=== PATIENT | female | born 1940 | race Caucasian/White ===

== ENCOUNTER 2016-06-21 11:12 | Emergency (ER) | payer MEDICARE, OTHER | END 2016-06-21 13:34 | disposition home or self-care (01) | DX: G44.219 Episodic tension-type headache, not intractable (principal); V48.5XXA Car driver injured in noncollision transport accident in traffic accident, initial encounter; Y92.410 Unspecified street and highway as the place of occurrence of the external cause; I10 Essential (primary) hypertension ==

== ENCOUNTER 2016-06-26 12:47 | Outpatient (CLI) | payer MEDICARE | END 2016-06-26 12:48 | disposition home or self-care (01) | DX: R55 Syncope and collapse (principal); R51 Headache ==

== ENCOUNTER 2016-08-30 12:51 | Outpatient (CLI) | payer MEDICARE | END 2016-08-30 12:52 | disposition home or self-care (01) | DX: R10.2 Pelvic and perineal pain (principal); R33.9 Retention of urine, unspecified ==

== ENCOUNTER 2016-09-24 11:36 | Outpatient (CLI) | payer MEDICARE | END 2016-09-24 11:37 | disposition home or self-care (01) | DX: Z12.31 Encounter for screening mammogram for malignant neoplasm of breast (principal); Z85.3 Personal history of malignant neoplasm of breast ==

== ENCOUNTER 2017-09-17 20:42 | Outpatient (CLI) | payer MEDICARE, OTHER ==
--- NOTE | 2017-09-18 14:29 | Ultrasound Report ---
PELVIC ULTRASOUND: 09/18/2017 INDICATION: Lower abdominal pressure, history of breast cancer. COMPARISON: 08/30/2016. TECHNIQUE: Transabdominal imaging of the pelvis was performed. Transvaginal pelvic ultrasound performed for detailed evaluation. Real-time scanning performed and static images obtained. FINDINGS: The uterus is anteverted, measuring 6.6 x 3.4 x 1.9 cm. The endometrium measures 1 mm. No focal myometrial lesion is present. The right ovary measures 0.9 x 0.8 x 0.6 cm, and appears unremarkable. The left ovary measures 1.2 x 0.7 x 0.5 cm, and appears unremarkable. No free fluid is present. IMPRESSION: NORMAL POSTMENOPAUSAL PELVIC ULTRASOUND. TD: 09/18/2017 14:28
== END 2017-09-17 20:43 | disposition home or self-care (01) ==
LOC: DI 20:42
PROVIDERS: ATTEND Registered Nurse
DX: R10.30 Lower abdominal pain, unspecified (principal); Z85.3 Personal history of malignant neoplasm of breast
CPT/HCPCS: 76830; 76856

== ENCOUNTER 2017-10-15 08:50 | Outpatient (CLI) | payer MEDICARE, OTHER ==
--- NOTE | 2017-10-19 11:52 | Mammography Report ---
DIGITAL SCREENING MAMMOGRAM: 10/15/2017 CLINICAL INDICATION: A 76-year-old with personal history of bilateral breast cancer, status post lumpectomies and radiation therapy, for screening. COMPARISON: 08/2016, 07/2015, 07/2014, 07/2013, 05/2012, 10/2011, 05/2011, 10/2010, 07/2010. TECHNIQUE: Routine CC and MLO projections as well as bilateral laterally exaggerated craniocaudal views were obtained of the breasts. FINDINGS: The breasts again demonstrate scattered fibroglandular densities bilaterally. Postoperative and posttreatment changes are stable. Coarse and punctate, typically benign calcifications are present. No suspicious masses, clustered microcalcifications, or regions of architectural distortion are identified. IMPRESSION: BENIGN FINDINGS. RECOMMENDATION: Routine annual screening unless otherwise clinically indicated. BI-RADS CATEGORY 2 - BENIGN FINDINGS. STANDARD QUALIFYING STATEMENTS: 1. This examination was reviewed with the aid of Computer-Aided Detection (CAD). 2. A negative or benign imaging report should not delay biopsy if clinically suspicious findings are present. Consider surgical consultation if warranted. More than 5% of cancers are not identified by imaging. 3. Dense breasts may obscure an underlying neoplasm. TD: 10/19/2017 11:41
== END 2017-10-15 08:51 | disposition home or self-care (01) ==
LOC: DI.S 08:50
PROVIDERS: ATTEND Physician Assistant
DX: Z12.31 Encounter for screening mammogram for malignant neoplasm of breast (principal); Z85.3 Personal history of malignant neoplasm of breast
CPT/HCPCS: 77067

== ENCOUNTER 2018-05-27 12:04 | Outpatient (CLI) | payer MEDICARE, OTHER ==
--- NOTE | 2018-05-28 08:34 | XRAY Report ---
Reason: PAIN IN RIGHT HIP Procedure Date: 05/27/2018 Accession Number: [id number] / [id number] Procedure: XR - Hips 2V BILAT CPT Code: FULL RESULT: EXAM: BILATERAL HIP RADIOGRAPHY EXAM DATE: 05/27/2018 01:42 PM. CLINICAL HISTORY: PAIN IN RIGHT HIP. COMPARISON: None. TECHNIQUE: 2 views each. FINDINGS: Bones: Normal. No fractures or bone lesion. Right Hip: Joint space narrowing, subchondral sclerosis acetabulum. Left Hip: Normal. No dislocation. The hip joint space is preserved. Soft Tissues: Normal. No soft tissue swelling. IMPRESSION: DJD right hip RADIA
== END 2018-05-27 12:05 | disposition home or self-care (01) ==
LOC: DI 12:04
PROVIDERS: ATTEND Physician Assistant
DX: M16.11 Unilateral primary osteoarthritis, right hip (principal)
CPT/HCPCS: 73521

== ENCOUNTER 2018-11-19 08:21 | Outpatient (CLI) | payer MEDICARE, OTHER ==
--- NOTE | 2018-11-19 15:34 | CT Report ---
Reason: OTHER AMNESIA Procedure Date: 11/19/2018 Accession Number: [id number] / [id number] Procedure: CT - HEAD WO CPT Code: FULL RESULT: EXAM: CT HEAD EXAM DATE: 11/19/2018 08:37 AM. CLINICAL HISTORY: Other amnesia. COMPARISON: HEAD W/O 06/21/2016 12:24 PM. TECHNIQUE: Multiaxial CT images were obtained from the foramen magnum to the vertex. Reformats: Sagittal and coronal. IV contrast: None. In accordance with CT protocol optimization, one or more of the following dose reduction techniques were utilized for this exam: automated exposure control, adjustment of mA and/or KV based on patient size, or use of iterative reconstructive technique. FINDINGS: Parenchyma: No intraparenchymal hemorrhage. No evidence of mass, midline shift. Diaz-white differentiation is distinct. Extraaxial Spaces: Basal cisterns are preserved. No subdural or epidural collections identified. Ventricles: Stable ventricular configuration with prominence of ventricles compared to sulci. Sinuses and Orbits: Imaged paranasal sinuses, orbits show no significant abnormality. Bones: There has been interval right mastoidectomy. Left mastoids are unremarkable. No traumatic osseous injury. Other: None. IMPRESSION: Stable prominence of ventricles compared to sulci. This is a nonspecific finding but can be seen with normal pressure hydrocephalus. RADIA
== END 2018-11-19 08:22 | disposition home or self-care (01) ==
LOC: DI 08:21
PROVIDERS: ATTEND Registered Nurse
DX: R41.3 Other amnesia (principal)
CPT/HCPCS: 70450

== ENCOUNTER 2018-11-22 12:30 | Outpatient (CLI) | payer MEDICARE, OTHER ==
--- NOTE | 2018-11-22 13:53 | Mammography Report ---
Reason: RT BREAST LUMP Procedure Date: 11/22/2018 Accession Number: [id number] / [id number] Procedure: [facility] - Diagnostic Dig Bilat CPT Code: FULL RESULT: EXAM: Diagnostic Dig Bilat DATE: 11/22/2018 1:06 PM CLINICAL HISTORY: Diagnostic examination. Right breast lump. TECHNIQUE: (B) - Bilateral CC and MLO views were obtained. A left laterally exaggerated CC views obtained. A right ML view is obtained. COMPARISON: 10/15/2017 through 08/04/2014. PARENCHYMAL PATTERN: (A) - The breast(s) demonstrate(s) scattered fibroglandular densities. FINDINGS: Bilateral postlumpectomy changes are redemonstrated. There are no suspicious masses, calcifications, or areas of distortion. IMPRESSION: Benign findings. BI-RADS category 2. RECOMMENDATION: (ANNUAL) - Recommend routine annual screening mammography. BI-RADS CATEGORY: (2) - Benign Findings. STANDARD QUALIFYING STATEMENTS: 1. This examination was not reviewed with the aid of Computer-Aided Detection (CAD). 2. A negative or benign imaging report should not preclude biopsy if clinically suspicious findings are present. 3. Dense breasts may obscure an underlying neoplasm. 4. This examination was reviewed with the aid of 3D breast imaging (tomosynthesis).
--- NOTE | 2018-11-25 14:56 | Ultrasound Report ---
Reason: RIGHT BREAST LUMP Procedure Date: 11/22/2018 Accession Number: [id number] / [id number] Procedure: US - Breast Unilateral Limited CPT Code: FULL RESULT: EXAM: Breast Unilateral Limited DATE: 11/22/2018 1:49 PM CLINICAL HISTORY: RIGHT BREAST LUMP COMPARISON: None. TECHNIQUE: Targeted ultrasound was performed of the right breast in the area of clinical concern in the lower inner quadrant. Color Doppler was employed as appropriate. FINDINGS: The lower inner quadrant as indicated as palpable by the patient is interrogated with grayscale and limited color Doppler ultrasound. No abnormal mass is seen. No architectural distortion is seen. Normal tissue architecture is identified. IMPRESSION: Negative examination RECOMMENDATION: Recommend routine annual Screening mammography unless otherwise clinically indicated. BIRADS CATEGORY 1: Negative RADIA
== END 2018-11-22 12:31 | disposition home or self-care (01) ==
LOC: DI 12:30
PROVIDERS: ATTEND Physician Assistant
DX: N63.14 Unspecified lump in the right breast, lower inner quadrant (principal)
CPT/HCPCS: 76642; 77066; G0279; 77062

== ENCOUNTER 2018-11-23 12:12 | Outpatient (CLI) | payer MEDICARE, OTHER ==
--- NOTE | 2018-11-24 08:59 | Ultrasound Report ---
Reason: TRANSIENT CEREBRAL ISCHEMIC ATTACK,UNSPECIFIED Procedure Date: 11/23/2018 Accession Number: [id number] / [id number] Procedure: US - Carotid Doppler Complete CPT Code: FULL RESULT: EXAM: BILATERAL CAROTID AND VERTEBRAL ARTERY DUPLEX DOPPLER ULTRASOUND: EXAM DATE: 11/23/2018 01:17 PM CLINICAL HISTORY: Transient cerebral ischemic attack, unspecified. COMPARISON: CAROTID DOPPLER COMPLETE 06/26/2016 1:05 PM. TECHNIQUE: Grayscale imaging, color Doppler, and duplex spectral Doppler were used to evaluate the carotid and vertebral arteries bilaterally. Static images were obtained. FINDINGS: Mild atheromatous plaques are present in the right carotid bulb extending into the internal carotid artery. However, no hemodynamically significant stenoses are noted. Mild atheromatous plaques are present in the left carotid bulb extending into the internal carotid artery. However, no hemodynamically significant stenoses are noted. Visualized portions of the neck soft tissues are grossly unremarkable. Normal antegrade flow is present in bilateral vertebral arteries. VELOCITIES (cm/sec): Right CCA mid: PSV 64 cm/sec CCA dist: PSV 73 cm/sec ICA prox: PSV 51 cm/sec. ICA mid: PSV 69 cm/sec. ICA dist: PSV 60 cm/sec. ECA: PSV 52 cm/sec Vert: PSV 38 cm/sec ICA/CCA: 0.94 Left CCA mid: PSV 66 cm/sec CCA dist: PSV 66 cm/sec ICA prox: PSV 57 cm/sec, EDV 9 cm/sec ICA mid: PSV 51 cm/sec, EDV 16 cm/sec ICA dist: PSV 59 cm/sec, EDV 21 cm/sec ECA: PSV 51 cm/sec Vert: PSV 57 cm/sec ICA/CCA: 0.89 ICA diameter stenosis: Right: <50% by velocity and <70% by NASCET criteria. Left: <50% by velocity and <70% by NASCET criteria. IMPRESSION: 1. Mild bilateral carotid artery plaquing. 2. In the right carotid artery there are no elevated carotid artery velocities to suggest hemodynamically significant stenosis. 3. In the left carotid artery there are no elevated carotid artery velocities to suggest hemodynamically significant stenosis. 4. Normal antegrade flow is present in bilateral vertebral arteries. General Recommendations: Stenosis =50% ICA - Follow-up ultrasound 6-12 months Stenosis <50% ICA - High Risk Patient with plaque - Follow-up ultrasound 1-2 years Normal Study but High Risk Patient - Follow-up ultrasound 3-5 years Management recommendations and diagnostic criteria are based on current IAC endorsed standards in Carotid Artery Stenosis: Grayscale and Doppler Ultrasound Diagnosis. Validated velocity measurements with angiographic measurements and velocity criteria are extrapolated from diameter data as defined by the Society of Radiologists in Ultrasound Consensus Conference Radiology 2003; 229;340-346. RADIA
== END 2018-11-23 12:13 | disposition home or self-care (01) ==
LOC: DI 12:12
PROVIDERS: ATTEND Registered Nurse
DX: G45.9 Transient cerebral ischemic attack, unspecified (principal)
CPT/HCPCS: 93880

== ENCOUNTER 2018-12-20 11:51 | Emergency (ER) | payer MEDICARE, OTHER ==
--- NOTE | 2018-12-20 13:46 | ED Physician Documentation ---
History of Present Illness - Stated complaint Stated Complaint: R WRIST INJ/SENT BY - Chief complaint Chief Complaint: General - History obtained from History obtained from: Patient - Additonal information Additional information: Patient is a right-handed 77-year-old female presenting with concern for possible bat bite to the dorsum of the right wrist. Patient reports that she is staying in a rental home and read a pamphlet about bats being in the area and occasionally getting in the house. Patient denies any known bad exposures, waking up to about in her room, or seeing any bouts at all. Patient had small scab to the right wrist that she assumed was from mowing the lawn or doing other act cavities, but is concerned that it could be a bat bite. Patient denies pain, range of motion changes, sensation changes, strength changes to the right hand or arm. Patient also denies headache, nausea, vomiting, abdominal pain, or other complaints. Patient is at her normal state of health otherwise. No other improving or worsening factors noted. Review of Systems Constitutional: denies: Fever Eyes: denies: Loss of vision Ears: denies: Loss of hearing Cardiac: denies: Chest pain / pressure Respiratory: denies: Dyspnea GI: denies: Abdominal Pain, Nausea, Vomiting : denies: Dysuria Skin: reports: Abrasion (s) Musculoskeletal: denies: Extremity pain Neurologic: denies: Focal weakness, Numbness PD PAST MEDICAL HISTORY - Past Medical History Cardiovascular: Hypertension - Past Surgical History Past Surgical History: Yes General: Appendectomy - Present Medications Home Medications: Ambulatory Orders Medication Instructions Recorded Confirmed Amitriptyline [Elavil] 0 mg PO DAILY 06/21/16 06/21/16 Metoprolol Tartrate 1 tab PO BID 06/21/16 06/21/16 hydroCHLOROthiazide 1 tab PO DAILY 06/21/16 06/21/16 [Hydrochlorothiazide] - Allergies Allergies/Adverse Reactions: Allergies Allergy/AdvReac Type Severity Reaction Status Date / Time tolterodine tartrate * Allergy Unknown Verified 06/21/16 11:24 [From Detrol] iv dye Allergy Unknown Uncoded 06/21/16 11:24 - Social History Does the pt smoke?: No Smoking Status: Never smoker Does the pt drink ETOH?: Yes Does the pt have substance abuse?: No - Immunizations Immunizations are current?: Yes PD ED PE NORMAL - Vitals Vital signs reviewed: Yes - General General: Alert and oriented X 3, No acute distress, Well developed/nourished - HEENT HEENT: Atraumatic, Moist mucous membranes - Neck Neck: Supple, no meningeal sign - Cardiac Cardiac: Strong equal pulses - Respiratory Respiratory: No respiratory distress - Derm Derm: Normal color, Warm and dry, No rash, Other (Punctate abrasion to dorsum of right wrist otherwise uncomplicated.) - Extremities Extremities: No deformity, No tenderness to palpate - Neuro Neuro: Alert and oriented X 3, No motor deficit, No sensory deficit - Psych Psych: Normal mood, Normal affect Results - Vitals Vitals: Vital Signs - 24 hr 12/20/18 12:27 Temperature 36.7 C Heart Rate 76 Respiratory 18 Rate Blood Pressure 168/92 H O2 Saturation 97 Oxygen O2 Source Room air PD MEDICAL DECISION MAKING - ED course Complexity details: considered differential, d/w patient ED course: Patient presenting with abrasion to the dorsum of the right wrist otherwise uncomplicated. Do not find evidence of damage to underlying structures, psoas, abscess, lymphangitis. Do not have concerns for bony abnormalities. Patient denies any known exposures or visualization of bats in her house or the surrounding area. She reports that she would never have thought of a bat bite except for that she read an article recently. Do not have high suspicion for bad bite or rabies. Do not feel patient requires rabies vaccination at this time. Had extensive discussions regarding this process, strict return precautions, supportive cares, and follow-up. Patient voiced understanding and is comfortable with discharge plan. Departure - Departure Disposition: 01 Home, Self Care Clinical Impression: Abrasion Instructions: ED Abrasion Follow-Up: Carmel Major PA [Primary Care Provider] - Within 3 Days Comments: Please keep wound clean and dry using running water and soap only. Do not submerge underwater. May apply bacitracin/Neosporin and bandaging as needed. Please follow-up with primary care physician in next 2 to 3 days and return to ED sooner if experience worsening symptoms or have other concerns.
[2018-12-20 14:01] VITALS: BP 142/68
== END 2018-12-20 14:02 | disposition home or self-care (01) ==
LOC: ED 11:51
DX: S60.811A Abrasion of right wrist, initial encounter (principal); X58.XXXA Exposure to other specified factors, initial encounter; I10 Essential (primary) hypertension
CPT/HCPCS: 99282

== ENCOUNTER 2019-02-07 15:12 | Outpatient (CLI) | payer MEDICARE, OTHER ==
--- NOTE | 2019-02-08 11:08 | XRAY Report ---
Reason: Delbert [email or web address].[email or web address] Procedure Date: 02/07/2019 Accession Number: [id number] / [id number] Procedure: XRS - Chest 2 View X-Ray CPT Code: 53943 FULL RESULT: EXAM: CHEST RADIOGRAPHY EXAM DATE: 02/07/2019 03:24 PM. CLINICAL HISTORY: Delbert HOPPER6. Zacarias. COMPARISON: 09/03/2009 3:45 AM. TECHNIQUE: 2 views. FINDINGS: Lungs/Pleura: Interval new small opacity abutting the lower right heart shadow visualized, likely in the right middle lobe visualized. No pleural effusion. No pneumothorax. Mildly elevated right hemidiaphragm unchanged. Mediastinum: Heart and mediastinal contours are unremarkable. Other: Small surgical clips in the left axilla again noted. IMPRESSION: New small opacity in the medial right middle lobe, concern for new focal infiltrate, pneumonia versus small atelectasis, recommend chest x-ray of 2 views follow-up in 4-5 weeks.
== END 2019-02-07 15:13 | disposition home or self-care (01) ==
LOC: DI.S 15:12
PROVIDERS: ATTEND Physician Assistant
DX: R91.8 Other nonspecific abnormal finding of lung field (principal); R06.02 Shortness of breath
CPT/HCPCS: 36415; 71046; 85379

== ENCOUNTER 2019-02-11 08:37 | Outpatient (CLI) | payer MEDICARE, OTHER ==
--- NOTE | 2019-02-11 10:20 | Nuclear Medicine Report ---
Reason: SHORTNESS OF BREATH, POSITIVE D DIMER Procedure Date: 02/11/2019 Accession Number: [id number] / [id number] Procedure: NM - Lung Vent/Perf V/Q CPT Code: FULL RESULT: EXAM: VENTILATION/PERFUSION SCAN (V/Q SCAN) EXAM DATE: 02/11/2019 09:40 AM. CLINICAL HISTORY: Shortness of breath, positive D-dimer. COMPARISON: CHEST 2 VIEW 02/07/2019 3:33 PM. CHEST 2 VIEW 02/11/2019 9:37 AM. TECHNIQUE: Patient was administered 43.4 mCi of technetium 99m DTPA aerosol by inhalation and 8 standard ventilation images of the lungs were obtained. Next, the patient was injected with 5.4 mCi of technetium 99m MAA intravenously and 8 standard perfusion images of the lungs were obtained. FINDINGS: Ventilation Scan: Heterogeneous ventilation with preferential ventilation of the lung bases. There is a small more focal ventilation defect in the right apex. Perfusion Scan: Perfusion is more homogeneous than ventilation. Matching small perfusion defect in the right apex. No mismatched perfusion defects are evident. IMPRESSION: Low to very low probability pattern for pulmonary embolism. RADIA
--- NOTE | 2019-02-14 06:08 | XRAY Report ---
Reason: SOB Procedure Date: 02/11/2019 Accession Number: [id number] / [id number] Procedure: XR - Chest 2 View X-Ray CPT Code: 90686 FULL RESULT: EXAM: CHEST RADIOGRAPHY EXAM DATE: 02/11/2019 09:37 AM. CLINICAL HISTORY: Short of breath. COMPARISON: CHEST 2 VIEW 02/07/2019 3:33 PM. TECHNIQUE: 2 views. FINDINGS: Lungs/Pleura: No focal opacities evident. No pleural effusion. No pneumothorax. Normal volumes. Mediastinum: Heart and mediastinal contours are unremarkable. Other: Previous bilateral chest wall surgery. IMPRESSION: No acute process seen in the chest. RADIA
== END 2019-02-11 08:38 | disposition home or self-care (01) ==
LOC: DI 08:37
PROVIDERS: ATTEND Physician Assistant
DX: R06.02 Shortness of breath (principal)
CPT/HCPCS: 71046; 78582

== ENCOUNTER 2019-04-22 08:44 | Outpatient (CLI) | payer MEDICARE, OTHER ==
[2019-04-22] MEDS ORDERED: ALBUTEROL NEB 2.5 MG/3 ML INH SCH (09:05)
== END 2019-04-22 08:45 | disposition home or self-care (01) ==
LOC: RT 08:44
PROVIDERS: ATTEND Physician Assistant
DX: R06.00 Dyspnea, unspecified (principal)
CPT/HCPCS: 94060; 94727; 94729

== ENCOUNTER 2020-03-11 11:15 | Outpatient (CLI) | payer MEDICARE, OTHER ==
--- NOTE | 2020-03-12 16:19 | Mammography Report ---
BILATERAL DIGITAL SCREENING MAMMOGRAM 3D/2D: 03/11/2020 CLINICAL: Routine screening. Personal history of bilateral breast cancer. Comparison is made to exams dated: 11/22/2018 mammogram, 10/25/2017 mammogram, 09/24/2016 mammogram, 04/2016 mammogram, 08/04/2014 mammogram, and 07/05/2013 mammogram - [facility]. There are scattered fibroglandular elements in both breasts. There are benign post operative findings in both breasts. No significant masses, calcifications, or other findings are seen in either breast. There has been no significant interval change. IMPRESSION: BENIGN There is no mammographic evidence of malignancy. A 1 year screening mammogram is recommended. This exam was interpreted at Station ID: [id number]. NOTE: For mammograms, a report in lay terms will be sent to the patient. Approximately 15% of breast malignancies will not be visualized mammographically. In the management of a palpable breast mass, a negative mammogram must not discourage biopsy of a clinically suspicious lesion. Electronically Signed By: Marla hernandez/cale:03/11/2020 16:24:55 ACR BI-RADS Category 2: Benign Finding(s) 3342F PARENCHYMAL PATTERN: (A) - The breast(s) demonstrate(s) scattered fibroglandular densities. BI-RADS CATEGORY: (2) - 2 RECOMMENDATION: (ANNUAL) - Recommend routine annual screening mammography. [id number] 1 year screening LATERALITY: (B)
== END 2020-03-11 11:16 | disposition home or self-care (01) ==
LOC: DI 11:15
PROVIDERS: ATTEND Nurse Practitioner Family
DX: Z12.31 Encounter for screening mammogram for malignant neoplasm of breast (principal)
CPT/HCPCS: 77063; 77067

== ENCOUNTER 2020-07-23 06:49 | Outpatient (CLI) | payer MEDICARE, OTHER ==
--- NOTE | 2020-07-23 08:22 | Ultrasound Report ---
PROCEDURE: Abdomen Complete INDICATIONS: Lower abdominal pain TECHNIQUE: Real-time scanning was performed of the abdominal and retroperitoneal organs, with image documentatio n. COMPARISON: None. FINDINGS: Liver: Increased hepatic echogenicity indicative of diffuse hepatic steatosis. No focal hepatic mass . Gallbladder: Normally distended without sludge, stone, wall thickening, or pericholecystic fluid. Biliary ducts: No intrahepatic or extra hepatic biliary ductal dilatation demonstrated. Pancreas: Visualized portions of the pancreas are sonographically normal. Spleen: Spleen is normal in size and homogeneous in echotexture. Kidneys: No shadowing calculus or hydronephrosis. Normal size of both kidneys with normal cortical th ickness. Aorta: Atherosclerotic calcification and soft plaque throughout the of abdominal aorta without aneury sm. Iliacs: Proximal common iliac arteries are normal in caliber at less than 2.5 cm. IVC: Intrahepatic inferior vena cava is patent. Miscellaneous: No free abdominal fluid. IMPRESSION: No acute finding. Mild hepatic steatosis. Reviewed by: Jonas Doyle MD on 07/23/2020 8:20 AM [facility] Approved by: Jonas Doyle MD on 07/23/2020 8:20 AM PST Station ID: [id number]
== END 2020-07-23 06:50 | disposition home or self-care (01) ==
LOC: DI 06:49
PROVIDERS: ATTEND Nurse Practitioner Family
DX: R10.30 Lower abdominal pain, unspecified (principal); K76.0 Fatty (change of) liver, not elsewhere classified

== ENCOUNTER 2020-09-05 11:18 | Outpatient (CLI) | payer MEDICARE ==
[2020-09-05 16:01] LABS: ALBUMIN/GLOBULIN RATIO 1.5 (1.0-2.2); BILIRUBIN,TOTAL 0.7 mg/dL (0.2-1.0); CALCIUM 8.8 mg/dL (8.5-10.3); CREATININE 0.9 mg/dL (0.4-1.0); TOTAL PROTEIN 6.6 g/dL (6.7-8.2)
== END 2020-09-05 11:19 | disposition home or self-care (01) ==
LOC: LAB.S 11:18
PROVIDERS: ATTEND Nurse Practitioner Family
DX: R55 Syncope and collapse (principal)
CPT/HCPCS: 36415; 80053

== ENCOUNTER 2021-05-16 10:13 | Outpatient (CLI) | payer MEDICARE ==
--- NOTE | 2021-05-17 08:16 | Mammography Report ---
BILATERAL DIGITAL SCREENING MAMMOGRAM 3D/2D: 05/16/2021 CLINICAL: Routine screening. Personal history of bilateral breast cancer. Comparison is made to exams dated: 03/11/2020 mammogram, 11/22/2018 mammogram, 11/22/2018 ultrasound, 10/25/2017 mammogram, 09/24/2016 mammogram, and 08/10/2015 mammogram - [facility]. Th ere are scattered fibroglandular elements in both breasts. There are benign post operative findings in both breasts. No significant masses, calcifications, or other findings are seen in either breast. There has been no significant interval change. IMPRESSION: BENIGN There is no mammographic evidence of malignancy. A 1 year screening mammogram is recommended. This exam was interpreted at Station ID: [id number]. NOTE: For mammograms, a report in lay terms will be sent to the patient. Approximately 15% of breast malignancies will not be visualized mammographically. In the management of a palpable breast mass, a negative mammogram must not discourage biopsy of a clinically suspicious lesion. Electronically Signed By: Paige parrish/cale:05/16/2021 12:05:43 ACR BI-RADS Category 2: Benign Finding(s) 3342F PARENCHYMAL PATTERN: (A) - The breast(s) demonstrate(s) scattered fibroglandular densities. BI-RADS CATEGORY: (2) - 2 RECOMMENDATION: (ANNUAL) - Recommend routine annual screening mammography. [id number] 1 year screening LATERALITY: (B)
== END 2021-05-16 10:14 | disposition home or self-care (01) ==
LOC: DI 10:13
PROVIDERS: ATTEND Nurse Practitioner Family
DX: Z12.31 Encounter for screening mammogram for malignant neoplasm of breast (principal); Z85.3 Personal history of malignant neoplasm of breast

== ENCOUNTER 2021-07-03 07:41 | Day surgery (SDC) | payer MEDICARE, OTHER ==
--- NOTE | 2021-07-03 08:16 | ANESTHESIA ---
Pre-Anesthesia VS, & Labs - Diagnosis history polyps, positive cologuard - Procedure colonoscopy Vital Signs: Temp Pulse Resp BP Pulse Ox 36.5 C 60 11 L 152/86 H 100 07/03/21 08:07 07/03/21 08:07 07/03/21 08:07 07/03/21 08:07 07/03/21 08:07 Height: 5 ft 4 in Weight (kg): 61 kg Body Mass Index: 23.1 BMI Classification: Healthy weight - NPO Last Fluid Intake: am prep - Is Patient ?: No - Lab Results Lab results reviewed: Yes Home Medications and Allergies Home Medications: Ambulatory Orders FLUoxetine [PROzac] 10 mg PO DAILY 07/02/21 Famotidine [Pepcid] 20 mg PO BID 07/02/21 Losartan [Cozaar] 50 mg PO DAILY 07/02/21 Metoprolol Succinate [Toprol Xl] 25 mg PO DAILY 07/02/21 FLUoxetine [PROzac] 10 mg PO DAILY 07/02/21 Famotidine [Pepcid] 20 mg PO BID 07/02/21 Losartan [Cozaar] 50 mg PO DAILY 07/02/21 Metoprolol Succinate [Toprol Xl] 25 mg PO DAILY 07/02/21 Allergies/Adverse Reactions: Allergies Allergy/AdvReac Type Severity Reaction Status Date / Time tolterodine tartrate * Allergy Unknown Verified 07/02/21 11:47 [From Detrol] iv dye Allergy Severe Anaphylaxis Uncoded 07/02/21 11:47 Anes History & Medical History - Anesthetic History Anesthesia Complications: reports: Post-Operative Nausea/Vomiting (w/GA and NM scope 10 years ago) Family history of Anesthesia Complications: Denies Family history of Malignant Hyperthermia: Denies - Medical History Cardiovascular: reports: Hypertension Pulmonary: reports: None Gastrointestinal: reports: None Urinary: reports: None Smoking Status: Never smoker Psychosocial: reports: No issues indicated - Surgical History General: reports: Appendectomy Exam General: Alert, Oriented x3, Cooperative Dental: WNL Mouth Openin Fingerbreadth Neck Mobility: Normal Mallampati classification: II Thyromental Distance: 4-6 cm Respiratory: Lungs clear, Normal breath sounds, No respiratory distress Cardiovascular: Regular rate Neurological: Normal speech Mental/Cognitive Status: Alert/Oriented X3, Normal for patient Cognitive Status: Within normal limits Plan Anesthesia Type: Total IV Consent for Procedure(s) Verified and Reviewed: Yes Code Status: Attempt Resuscitation ASA classification: 2-Mild systemic disease Is this case an emergency?: No
[2021-07-03] MEDS ORDERED: LACTATED RINGERS 1,000 ML IV ONE ×2 (08:17→10:15)
[2021-07-03] MEDS ORDERED: PROPOFOL 500 MG/50 ML 500 MG/50 ML VIAL ONE (10:04)
--- NOTE | 2021-07-03 10:42 | ANESTHESIA POST OP EVALUATION ---
Anesthesia Post Eval - Post Anesthesia Eval Vitals: Last Vital Signs Temp 36.6 C 07/03/21 10:30 Pulse 87 07/03/21 10:30 Resp 16 07/03/21 10:30 BP 114/65 07/03/21 10:30 Pulse Ox 99 07/03/21 10:30 CV Function Including HR & BP: Stable Pain Control: Satisfactory Nausea & Vomiting: Negative Mental Status: Baseline Respiratory Status: Airway Patent Hydration Status: Satisfactory Anesthesia Complications: None
[2021-07-03 11:00] VITALS: BP 132/80
== END 2021-07-03 07:42 | disposition home or self-care (01) ==
LOC: SDS 07:41
PROVIDERS: ATTEND Surgery
DX: R19.5 Other fecal abnormalities (principal); K64.8 Other hemorrhoids; Z86.010 Personal history of colon polyps
CPT/HCPCS: 45378; J7120

== ENCOUNTER 2021-08-12 12:32 | Outpatient (CLI) | payer MEDICARE, OTHER | END 2021-08-12 12:33 | disposition critical access hospital (66) | LOC: EMS 12:32 | DX: R51.9 Headache, unspecified (principal); R47.89 Other speech disturbances; W18.39XA Other fall on same level, initial encounter; Y92.008 Other place in unspecified non-institutional (private) residence as the place of occurrence of the external cause | CPT/HCPCS: A0425; A0429 ==

== ENCOUNTER 2021-08-12 13:00 | Emergency (ER) | payer MEDICARE, OTHER ==
--- NOTE | 2021-08-12 13:27 | ED Physician Documentation ---
History of Present Illness - Stated complaint Stated Complaint: FALL/HEAD INJURY - Chief complaint Chief Complaint: Neuro - History obtained from History obtained from: Patient - History of Present Illness Timing: Today Pain level max: 3 Pain level now: 2 - Additonal information Additional information: Patient is an 80-year-old female who presents to the emergency department after a ground-level fall today. She was in the garage when she tripped and fell forward striking her head. Immediately after the event she said that she was confused and had difficulty with word finding. This lasted about 15 minutes. Currently she has a mild headache. No focal neurological deficits. Nothing makes it better or worse. Not on blood thinners. Review of Systems Ten Systems: 10 systems reviewed and negative Constitutional: denies: Fever, Chills Nose: denies: Rhinorrhea / runny nose, Congestion Throat: denies: Sore throat Cardiac: denies: Chest pain / pressure Respiratory: denies: Dyspnea, Cough, Wheezing GI: denies: Nausea, Vomiting, Diarrhea Skin: denies: Rash Musculoskeletal: denies: Neck pain, Back pain Neurologic: denies: Generalized weakness, Focal weakness, Numbness, Syncope, Seizure, Confused, LOC PD PAST MEDICAL HISTORY - Past Medical History Past Medical History: Yes Cardiovascular: Hypertension Respiratory: None GI: None : None - Past Surgical History Past Surgical History: Yes General: Appendectomy - Present Medications Home Medications: Ambulatory Orders Medication Instructions Recorded Confirmed FLUoxetine [PROzac] 10 mg PO DAILY 07/02/21 07/02/21 Famotidine [Pepcid] 20 mg PO BID 07/02/21 07/02/21 Losartan [Cozaar] 50 mg PO DAILY 07/02/21 07/03/21 Metoprolol Succinate [Toprol Xl] 25 mg PO DAILY 07/02/21 07/03/21 - Allergies Allergies/Adverse Reactions: Allergies Allergy/AdvReac Type Severity Reaction Status Date / Time tolterodine tartrate * Allergy Unknown Verified 08/12/21 13:06 [From Detrol] iv dye Allergy Severe Anaphylaxis Uncoded 08/12/21 13:06 - Social History Does the pt smoke?: No Smoking Status: Never smoker Does the pt drink ETOH?: Yes Does the pt have substance abuse?: No - Immunizations Immunizations are current?: Yes PD ED PE NORMAL - Vitals Vital signs reviewed: Yes - General General: Alert and oriented X 3, No acute distress - HEENT HEENT: Atraumatic, PERRL, EOMI, Ears normal, Moist mucous membranes - Neck Neck: Supple, no meningeal sign, No bony TTP, C-Spine cleared by NEXUS criteria - Cardiac Cardiac: RRR, Strong equal pulses - Respiratory Respiratory: No respiratory distress, Clear bilaterally - Abdomen Abdomen: Soft, Non tender, Non distended - Back Back: No spinal TTP - Derm Derm: Warm and dry - Extremities Extremities: No edema - Neuro Neuro: Alert and oriented X 3, 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, No motor deficit, No sensory deficit, Normal speech Eye Opening: Spontaneous Motor: Obeys Commands Verbal: Oriented GCS Score: 15 - Psych Psych: Normal mood, Normal affect Results - Vitals Vitals: Vital Signs - 24 hr 08/12/21 08/12/21 08/12/21 13:06 13:09 13:30 Temperature 36.9 C 36.4 C L 36.9 C Heart Rate 67 61 62 Respiratory 16 19 15 Rate Blood Pressure 164/99 H 177/113 H O2 Saturation 97 100 99 08/12/21 15:09 Temperature Heart Rate 56 L Respiratory 12 Rate Blood Pressure 179/77 H O2 Saturation 99 Oxygen O2 Source Room air - EKG (time done) 1533 Rate: Rate (enter#) (52) Rhythm: NSR Munith: Normal Intervals: Normal AL QRS: Normal Ischemia: Normal ST segments - Labs Labs: Laboratory Tests 08/12/21 08/12/21 08/12/21 14:21 15:33 15:33 WBC 7.9 RBC 5.02 Hgb 15.1 Hct 43.8 MCV 87.3 MCH 30.1 MCHC 34.5 RDW 13.1 Plt Count 185 MPV 10.2 Neut # (Auto) 6.3 Lymph # (Auto) 1.0 L Tyrrell # (Auto) 0.5 Eos # (Auto) 0.0 Baso # (Auto) 0.0 Absolute Nucleated RBC 0.00 Nucleated RBC % 0.0 Sodium 136 Potassium 4.2 Chloride 99 L Carbon Dioxide 26 Anion Gap 11.0 BUN 14 Creatinine 0.8 Estimated GFR (MDRD) 69 L Glucose 106 H Calcium 9.3 Urine Color YELLOW Urine Clarity CLEAR Urine pH 6.5 Ur Specific [place] 1.010 Urine Protein NEGATIVE Urine Glucose (UA) NEGATIVE Urine Ketones NEGATIVE Urine Occult Blood NEGATIVE Urine Nitrite NEGATIVE Urine Bilirubin NEGATIVE Urine Urobilinogen 0.2 (NORMAL) Ur Leukocyte Esterase NEGATIVE Ur Microscopic Review NOT INDICATED Urine Culture Comments NOT INDICATED - Rads (name of study) head CT Radiology: Final report received, EMP read contemporaneously, See rad report (no acute abnormality) PD MEDICAL DECISION MAKING - ED course Complexity details: reviewed results, re-evaluated patient, considered differential, d/w patient ED course: Patient is an 80-year-old female who presents to the emergency department after a ground-level fall in which she struck her head. Sounds as if she had mild concussive symptoms afterwards. Would be unlikely to have a TIA following so close to a closed head injury. She is anaphylactic to IV dye, therefore angiograms cannot be performed. No acute findings on laboratory testing, head CT. Patient is fully asymptomatic here. NIH stroke scale of 0. We will have her follow-up with her doctor for further care. Patient counseled regarding signs and symptoms for which I believe and urgent re-evaluation would be necessary. Patient with good understanding of and agreement to plan and is comfortable going home at this time This document was made in part using voice recognition software. While efforts are made to proofread this document, sound alike and grammatical errors may occur. Departure - Departure Disposition: 01 Home, Self Care Clinical Impression: Closed head injury Qualifiers: Encounter type: initial encounter Qualified Code(s): S09.90XA - Unspecified injury of head, initial encounter Condition: Good Instructions: ED Head Injury Closed Follow-Up: your,doctor in 1 week [Other] Comments: There are no acute findings on your head CT, blood work, urinalysis. Please follow-up with your doctor for further care. Return if you worsen. Discharge Date/Time: 08/12/21 16:11 NIHSS - Time Time: 13:10 - Level of Consciousness Level of consciousness: (0) Alert, Keenly responsive LOC Questions: (0) Answers both Q's correct LOC Commands: (0) Performs both correctly - Gaze Best Gaze: (0) Normal - Visual Visual: (0) No loss - Facial Palsy Facial Palsy: (0) Normal, symmetrical movement - Motor Arms (both separate) Motor Arm (right): (0) No drift Motor Arm (left): (0) No drift - Motor Legs (both separate) Motor Leg (right): (0) No drift Motor Leg (left): (0) No drift - Limb Ataxia Limb Ataxia: (0) Absent - Sensory Sensory: (0) Normal - Best Language Best Language: (0) No aphasia - Dysarthria Dysarthria: (0) Normal - Extinction and Inattention (formally neg Extinction and inattention: (0) No abnormality - Total Score/Results Total Score/Result: 0
[2021-08-12] MEDS ORDERED: IOVERSOL 320 100 ML VIAL IVP ONE (14:01)
--- NOTE | 2021-08-12 14:47 | CT Report ---
PROCEDURE: HEAD WO INDICATIONS: Head injury TECHNIQUE: Noncontrast 4.5 mm thick angled axial sections acquired from the foramen magnum to the vertex. For r adiation dose reduction, the following was used: automated exposure control, adjustment of mA and/or kV according to patient size. COMPARISON: November 19, 2018 FINDINGS: BRAIN PARENCHYMA: Moderate matter hypoattenuation, compatible with the sequela microvascular ischemia . No acute cortical based (large territory) infarction, intracranial hemorrhage, mass or mass effect, or abnormal fluid collection. The density in the larger dural venous sinuses is grossly normal. VENTRICLES: No significant change in caliber. BONES/SINUSES: The skull base and calvarium demonstrate no acute abnormality. Redemonstrated right ma stoidectomy change. The paranasal sinuses and mastoid air cells are well aerated. IMPRESSION: 1.No acute intracranial abnormality. Reviewed by: Chetan Hill MD on 08/12/2021 2:45 PM PDT Approved by: Chetan Hill MD on 08/12/2021 2:45 PM PDT Station ID: [id number]
[2021-08-12 15:18] VITALS: BP 179/77
[2021-08-12 15:38] LABS: BILIRUBIN,URINE NEGATIVE (NEGATIVE); GLUCOSE, URINE (UA) NEGATIVE (NEGATIVE); KETONES,URINE (UA) NEGATIVE (NEGATIVE); LEUKOCYTE ESTERASE, URINE NEGATIVE (NEGATIVE); NITRITE,URINE NEGATIVE (NEGATIVE); OCCULT BLOOD,URINE NEGATIVE (NEGATIVE); PH,URINE 6.5 PH (5.0-7.5); PROTEIN,URINE NEGATIVE (NEGATIVE); UROBILINOGEN,URINE 0.2 (NORMAL) E.U./dL (NORMAL)
[2021-08-12 15:43] LABS: CLARITY,URINE CLEAR (CLEAR)
[2021-08-12 15:43] LABS: BASOPHILS % (AUTO) 0.4 %; EOSINOPHILS % (AUTO) 0.5 %; HCT - HEMATOCRIT 43.8 % (37.0-47.0); HGB - HEMOGLOBIN 15.1 g/dL (12.0-16.0); LYMPHOCYTES % (AUTO) 12.7 %; MEAN CORPUSCULAR HEMOGLOBIN 30.1 pg (27.0-31.0); MEAN CORPUSCULAR HGB CONC 34.5 g/dL (32.0-36.0); MEAN CORPUSCULAR VOLUME 87.3 fL (81.0-99.0); MEAN PLATELET VOLUME 10.2 fL (7.9-10.8); MONOCYTES # (AUTO) 0.5 10^3/uL (0.0-1.0); MONOCYTES % (AUTO) 6.3 %; NEUTROPHILS # (AUTO) 6.3 10^3/uL (1.5-6.6); NEUTROPHILS % (AUTO) 79.8 %; PLT - PLATELET COUNT 185 10^3/uL (130-450); RED BLOOD COUNT 5.02 10^6/uL (4.20-5.40); RED CELL DISTRIBUTION WIDTH 13.1 % (12.0-15.0); WHITE BLOOD COUNT 7.9 x10^3/uL (4.8-10.8)
[2021-08-12 15:49] LABS: CALCIUM 9.3 mg/dL (8.5-10.3); CREATININE 0.8 mg/dL (0.4-1.0); POTASSIUM 4.2 mmol/L (3.5-5.0)
== END 2021-08-12 16:11 | disposition home or self-care (01) ==
LOC: EDUNIT# → ED 13:00
DX: S09.90XA Unspecified injury of head, initial encounter (principal); W01.198A Fall on same level from slipping, tripping and stumbling with subsequent striking against other object, initial encounter; Y92.008 Other place in unspecified non-institutional (private) residence as the place of occurrence of the external cause
CPT/HCPCS: 36415; 80048; 81001; 81003; 85025; 87086; 93005; 99284

== ENCOUNTER 2021-09-30 12:05 | Outpatient (CLI) | payer MEDICARE, OTHER ==
[2021-09-30 17:27] LABS: ALBUMIN 3.8 g/dL (3.2-5.5); ALBUMIN/GLOBULIN RATIO 1.5 (1.0-2.2); ALKALINE PHOSPHATASE 67 IU/L (42-121); ALT ALANINE AMINOTRANSFERASE 18 IU/L (10-60); AST ASPARTATE AMINOTRANSFERASE 19 IU/L (10-42); BILIRUBIN,TOTAL 0.7 mg/dL (0.2-1.0); BUN - BLOOD UREA NITROGEN 19 mg/dL (6-20); CARBON DIOXIDE - CO2 28 mmol/L (21-32); CHLORIDE 90 mmol/L (101-111); CHOLESTEROL 133 mg/dL; CREATININE 0.7 mg/dL (0.4-1.0); GFR - MDRD 80 (>89); GLUCOSE 71 mg/dL (70-100); HDL CHOLESTEROL 45 mg/dL; LDL CHOLESTEROL,CALCULATED 67 mg/dL; LDL/HDL RATIO 1.5 (<4.4); POTASSIUM 4.3 mmol/L (3.5-5.0); SODIUM 125 mmol/L (135-145); TOTAL PROTEIN 6.3 g/dL (6.7-8.2); TRIGLYCERIDES 106 mg/dL; VLDL CHOLESTEROL 21 mg/dL
== END 2021-09-30 12:06 | disposition home or self-care (01) ==
LOC: LAB.S 12:05
PROVIDERS: ATTEND Nurse Practitioner Family
DX: E87.1 Hypo-osmolality and hyponatremia (principal); E78.5 Hyperlipidemia, unspecified
CPT/HCPCS: 36415; 80053; 80061; 83721

== ENCOUNTER 2021-12-06 12:29 | Outpatient (CLI) | payer MEDICARE, OTHER ==
[2021-12-06 15:11] LABS: CALCIUM 9.3 mg/dL (8.5-10.3); CREATININE 0.9 mg/dL (0.4-1.0); POTASSIUM 4.6 mmol/L (3.5-5.0)
== END 2021-12-06 12:30 | disposition home or self-care (01) ==
LOC: LAB.S 12:29
PROVIDERS: ATTEND Nurse Practitioner Family
DX: E87.1 Hypo-osmolality and hyponatremia (principal)
CPT/HCPCS: 36415; 80048

== ENCOUNTER 2021-12-26 10:26 | Outpatient (CLI) | payer MEDICARE, OTHER ==
[2021-12-26 15:06] LABS: ALBUMIN 4.1 g/dL (3.2-5.5); ALBUMIN/GLOBULIN RATIO 1.5 (1.0-2.2); BILIRUBIN,TOTAL 0.7 mg/dL (0.2-1.0); CREATININE 0.9 mg/dL (0.4-1.0); POTASSIUM 4.7 mmol/L (3.5-5.0); TOTAL PROTEIN 6.8 g/dL (6.7-8.2)
== END 2021-12-26 10:27 | disposition home or self-care (01) ==
LOC: LAB.S 10:26
PROVIDERS: ATTEND Physician Assistant
DX: I10 Essential (primary) hypertension (principal)
CPT/HCPCS: 36415; 80053

== ENCOUNTER 2022-06-13 07:42 | Outpatient (CLI) | payer MEDICARE, OTHER ==
[2022-06-13 15:34] LABS: BASOPHILS % (AUTO) 0.5 %; EOSINOPHILS # (AUTO) 0.2 10^3/uL (0.0-0.7); EOSINOPHILS % (AUTO) 2.5 %; HCT - HEMATOCRIT 45.5 % (37.0-47.0); HGB - HEMOGLOBIN 14.7 g/dL (12.0-16.0); LYMPHOCYTES % (AUTO) 30.7 %; MEAN CORPUSCULAR HEMOGLOBIN 29.1 pg (27.0-31.0); MEAN CORPUSCULAR HGB CONC 32.3 g/dL (32.0-36.0); MEAN CORPUSCULAR VOLUME 90.1 fL (81.0-99.0); MEAN PLATELET VOLUME 11.1 fL (7.9-10.8); MONOCYTES # (AUTO) 0.6 10^3/uL (0.0-1.0); MONOCYTES % (AUTO) 9.5 %; NEUTROPHILS # (AUTO) 3.7 10^3/uL (1.5-6.6); NEUTROPHILS % (AUTO) 56.6 %; PLT - PLATELET COUNT 222 10^3/uL (130-450); RED BLOOD COUNT 5.05 10^6/uL (4.20-5.40); RED CELL DISTRIBUTION WIDTH 13.3 % (12.0-15.0); WHITE BLOOD COUNT 6.5 x10^3/uL (4.8-10.8)
[2022-06-13 16:16] LABS: ALBUMIN 3.9 g/dL (3.2-5.5); ALBUMIN/GLOBULIN RATIO 1.3 (1.0-2.2); ALKALINE PHOSPHATASE 62 IU/L (42-121); ALT ALANINE AMINOTRANSFERASE 15 IU/L (10-60); AST ASPARTATE AMINOTRANSFERASE 19 IU/L (10-42); BILIRUBIN,TOTAL 0.8 mg/dL (0.2-1.0); BUN - BLOOD UREA NITROGEN 17 mg/dL (6-20); CALCIUM 9.1 mg/dL (8.5-10.3); CARBON DIOXIDE - CO2 29 mmol/L (21-32); CHLORIDE 103 mmol/L (101-111); CHOL/HDL RATIO 5.5 (<4.4); CHOLESTEROL 233 mg/dL; CREATININE 0.9 mg/dL (0.4-1.0); GFR - MDRD 60 (>89); GLUCOSE 101 mg/dL (70-100); HDL CHOLESTEROL 42 mg/dL; LDL CHOLESTEROL,CALCULATED 161 mg/dL; LDL/HDL RATIO 3.8 (<4.4); POTASSIUM 4.2 mmol/L (3.5-5.0); SODIUM 137 mmol/L (135-145); TOTAL PROTEIN 6.8 g/dL (6.7-8.2); TRIGLYCERIDES 151 mg/dL; VLDL CHOLESTEROL 30 mg/dL
== END 2022-06-13 07:43 | disposition home or self-care (01) ==
LOC: LAB.S 07:42
PROVIDERS: ATTEND Nurse Practitioner Acute Care
DX: E87.1 Hypo-osmolality and hyponatremia (principal); Z13.220 Encounter for screening for lipoid disorders; Z79.899 Other long term (current) drug therapy
CPT/HCPCS: 36415; 80053; 80061; 83721; 85025

== ENCOUNTER 2022-06-17 12:33 | Outpatient (CLI) | payer MEDICARE, OTHER ==
--- NOTE | 2022-06-18 11:56 | Mammography Report ---
BILATERAL DIGITAL SCREENING MAMMOGRAM 3D/2D: 06/17/2022 CLINICAL: Routine screening. Personal history of bilateral breast cancer. Comparison is made to exams dated: 05/16/2021 mammogram, 03/11/2020 mammogram, 11/22/2018 mammogram, 10/25/2017 mammogram, 09/24/2016 mammogram, and 08/10/2015 mammogram - [facility]. There are scattered areas of fibroglandular density in both breasts (category b / 25%-50% glandular t issue). There are benign post operative findings in both breasts. No significant masses, calcifications, or other findings are seen in either breast. There has been no significant interval change. IMPRESSION: BENIGN There is no mammographic evidence of malignancy. A 1 year screening mammogram is recommended. This exam was interpreted at Station ID: [id number]. NOTE: For mammograms, a report in lay terms will be sent to the patient. Approximately 15% of breast malignancies will not be visualized mammographically. In the management of a palpable breast mass, a negative mammogram must not discourage biopsy of a clinically suspicious lesion. Electronically Signed By: Coleman evans/cale:06/17/2022 13:51:29 ACR BI-RADS Category 2: Benign Finding(s) 3342F PARENCHYMAL PATTERN: (A) - The breast(s) demonstrate(s) scattered fibroglandular densities. BI-RADS CATEGORY: (2) - 2 RECOMMENDATION: (ANNUAL) - Recommend routine annual screening mammography. [id number] 1 year screening LATERALITY: (B)
== END 2022-06-17 12:34 | disposition home or self-care (01) ==
LOC: DI 12:33
PROVIDERS: ATTEND Nurse Practitioner Acute Care
DX: Z12.31 Encounter for screening mammogram for malignant neoplasm of breast (principal); Z85.3 Personal history of malignant neoplasm of breast

== ENCOUNTER 2022-07-27 18:33 | Emergency (ER) | payer MEDICARE, OTHER ==
--- OUTSIDE RECORDS SUMMARY | 2022-07-27 18:52 | EXTERNAL MEDICAL SUMMARY RPT | Continuity of Care Document ---
:1940 Author Organization [facility] Address [address] [place] [address] Phone Care Team Providers Name Role Phone Unavailable Unavailable Unavailable Yadira Caal Unavailable Unavailable Allergies and Intolerances date description facility type (no date) TOLTERODINE TARTRATE Walk[facility] re & (unknown) [facility] Encounters No information. Functional Status No information. Immunizations No information. Medications date description facility 2022-06-09 00:00 famotidine [facility] 2022-06-10 00:00 famotidine [facility] 2022-06-14 00:00 famotidine [facility] 2022-07-24 00:00 famotidine [facility] 2022-06-09 00:00 ascorbic acid (vitamin c) Walk[facility]In Clin [facility] Primary Care & Ancillary Services [facility] 2022-06-10 00:00 ascorbic acid (vitamin c) Walk[facility]In Clin [facility] Primary Care & Ancillary Services [facility] 2022-06-14 00:00 ascorbic acid (vitamin c) Walk[facility]In Clin [facility] Care & Ancillary Services [facility] 2022-07-24 00:00 ascorbic acid (vitamin c) Walk[facility]In Clin [facility] Primary Care & Ancillary Services [facility] 2022-06-09 00:00 metoprolol succinate Walk-In Clinic [facility] Care & Ancillary Services [facility] 2022-06-09 00:00 ascorbic acid (vitamin c) Walk-In Clin ic Primary Care & Ancillary Services [facility] 2022-06-10 00:00 ascorbic acid (vitamin c) Walk[facility]In [facility] Care & Ancillary Services [facility] 2022-06-14 00:00 ascorbic acid (vitamin c) Walk[facility]In Clin ic [facility] Care & Ancillary Services [facility] 2022-07-24 00:00 ascorbic acid (vitamin c) [facility] 2022-06-09 00:00 cholecalciferol (vitamin d3) Walk[facility]In [facility] 2022-06-10 00:00 cholecalciferol (vitamin d3) [facility] 2022-06-14 00:00 cholecalciferol (vitamin d3) [facility] 2022-07-24 00:00 cholecalciferol (vitamin d3) [facility] 2022-06-09 00:00 vitamin l04-qbspd acid [facility] 2022-06-10 00:00 vitamin b25-abexz acid [facility] 2022-06-14 00:00 vitamin j05-naolb acid [facility] 2022-07-24 00:00 vitamin k67-ycyzo acid [facility] 2022-06-09 00:00 amlodipine [facility] [place] 2022-06-10 00:00 amlodipine [facility] [place] 2022-06-14 00:00 amlodipine [facility] 2022-07-24 00:00 amlodipine [facility] 2022-06-09 00:00 metoprolol succinate [facility] [place] 2022-06-09 00:00 metoprolol succinate [facility] 2022-06-09 00:00 amlodipine [facility] 2022-06-10 00:00 amlodipine [facility] 2022-06-14 00:00 amlodipine [facility] 2022-07-24 00:00 amlodipine [facility] 2022-06-09 00:00 famotidine [facility] 2022-06-10 00:00 famotidine [facility] 2022-06-14 00:00 famotidine [facility] 2022-07-24 00:00 famotidine [facility] [place] 2022-06-09 00:00 fluoxetine [facility] 2022-06-10 00:00 fluoxetine [facility] 2022-06-14 00:00 fluoxetine [facility] 2022-07-24 00:00 fluoxetine [facility] 2022-06-09 00:00 famotidine [facility] 2022-06-10 00:00 famotidine [facility] [place] 2022-06-14 00:00 famotidine [facility] [place] 2022-07-24 00:00 famotidine [facility] [place] 2022-06-09 00:00 fluoxetine [facility] [place] 2022-06-10 00:00 fluoxetine [facility] [place] 2022-06-14 00:00 fluoxetine [facility] 2022-07-24 00:00 fluoxetine [facility] [place] 2022-06-09 00:00 metoprolol succinate [facility] [place] 2022-06-09 00:00 amlodipine [facility] [place] 2022-06-10 00:00 amlodipine [facility] [place] 2022-06-14 00:00 amlodipine [facility] [place] 2022-07-24 00:00 amlodipine [facility] [place] 2022-06-09 00:00 losartan [facility] [place] 2022-06-10 00:00 losartan [facility] [place] 2022-06-14 00:00 losartan [facility] [place] 2022-07-24 00:00 losartan [facility] [place] 2022-06-09 00:00 rosuvastatin [facility] [place] 2022-06-10 00:00 rosuvastatin [facility] [place] 2022-06-14 00:00 rosuvastatin [facility] [place] 2022-07-24 00:00 rosuvastatin [facility] [place] 2022-06-09 00:00 losartan [facility] [place] 2022-06-10 00:00 losartan [facility] [place] 2022-06-14 00:00 losartan [facility] [place] 2022-07-24 00:00 losartan [facility] [place] 2022-06-09 00:00 famotidine [facility] [place] 2022-06-10 00:00 famotidine [facility] [place] 2022-06-14 00:00 famotidine [facility] [place] 2022-07-24 00:00 famotidine [facility] [place] 2022-06-09 00:00 fluoxetine [facility] [place] 2022-06-10 00:00 fluoxetine [facility] [place] 2022-06-14 00:00 fluoxetine [facility] [place] 2022-07-24 00:00 fluoxetine [facility] [place] 2022-06-09 00:00 fluoxetine [facility] [place] 2022-06-10 00:00 fluoxetine [facility] [place] 2022-06-14 00:00 fluoxetine [facility] [place] 2022-07-24 00:00 fluoxetine [facility] [place] 2022-06-09 00:00 vitamin l22-mthsj acid [facility] [place] 2022-06-10 00:00 vitamin z43-rzkpc acid [facility] [place] 2022-06-14 00:00 vitamin b44-ydaya acid [facility] [place] 2022-07-24 00:00 vitamin s31-mfxnd acid [facility] [place] 2022-06-09 00:00 amlodipine [facility] [place] 2022-06-10 00:00 amlodipine [facility] [place] 2022-06-14 00:00 amlodipine [facility] [place] 2022-07-24 00:00 amlodipine [facility] [place] 2022-06-09 00:00 losartan [facility] [place] 2022-06-10 00:00 losartan [facility] [place] 2022-06-14 00:00 losartan [facility] [place] 2022-07-24 00:00 losartan [facility] [place] 2022-06-09 00:00 rosuvastatin [facility] [place] 2022-06-10 00:00 rosuvastatin [facility] [place] 2022-06-14 00:00 rosuvastatin [facility] [place] 2022-07-24 00:00 rosuvastatin [facility] 2022-06-09 00:00 ascorbic acid (vitamin c) Walk-In Clin ic Primary Care & Ancillary Services [facility] 2022-06-10 00:00 ascorbic acid (vitamin c) Walk-In [facility] ic Primary Care & Ancillary Services [facility] 2022-06-14 00:00 ascorbic acid (vitamin c) Walk-In [facility] ic Primary Care & Ancillary Services [facility] 2022-07-24 00:00 ascorbic acid (vitamin c) Walk-In [facility] ic Primary Care & Ancillary Services [facility] 2022-06-09 00:00 cholecalciferol (vitamin d3) Walk-In [facility] Primary Care & Ancillary Services [facility] 2022-06-10 00:00 cholecalciferol (vitamin d3) Walk-In [facility] Primary Care & Ancillary Services [facility] 2022-06-14 00:00 cholecalciferol (vitamin d3) Walk-In [facility] Primary Care & Ancillary Services [facility] 2022-07-24 00:00 cholecalciferol (vitamin d3) Walk-In [facility] Primary Care & Ancillary Services [facility] 2022-06-09 00:00 cholecalciferol (vitamin d3) Walk-In [facility] Primary Care & Ancillary Services [facility] 2022-06-10 00:00 cholecalciferol (vitamin d3) Walk-In [facility] Primary Care & Ancillary Services [facility] 2022-06-14 00:00 cholecalciferol (vitamin d3) Walk-In [facility] Primary Care & Ancillary Services [facility] 2022-07-24 00:00 cholecalciferol (vitamin d3) Walk-In [facility] Primary Care & Ancillary Services [facility] 2022-06-09 00:00 cholecalciferol (vitamin d3) Walk-In [facility] Primary Care & Ancillary Services [facility] 2022-06-10 00:00 cholecalciferol (vitamin d3) Walk-In [facility] Primary Care & Ancillary Services [facility] 2022-06-14 00:00 cholecalciferol (vitamin d3) Walk-In [facility] Primary Care & Ancillary Services [facility] 2022-07-24 00:00 cholecalciferol (vitamin d3) Walk[facility]In [facility] [place] 2022-06-09 00:00 rosuvastatin [facility] [place] 2022-06-10 00:00 rosuvastatin [facility] [place] 2022-06-14 00:00 rosuvastatin [facility] [place] 2022-07-24 00:00 rosuvastatin [facility] [place] 2022-06-09 00:00 vitamin u42-ldrqw acid [facility] [place] 2022-06-10 00:00 vitamin f98-idtad acid [facility] [place] 2022-06-14 00:00 vitamin n33-mtjzz acid [facility] [place] 2022-07-24 00:00 vitamin c86-wkkmg acid [facility] 2022-06-09 00:00 rosuvastatin [facility] [place] 2022-06-10 00:00 rosuvastatin [facility] [place] 2022-06-14 00:00 rosuvastatin [facility] [place] 2022-07-24 00:00 rosuvastatin [facility] [place] [place] 2022-06-09 00:00 losartan [facility] Services [place] 2022-06-10 00:00 losartan [facility] [place] 2022-06-14 00:00 losartan [facility] [place] 2022-07-24 00:00 losartan [facility] [place] 2022-06-09 00:00 coq10 (ubiquinol) [facility] [place] 2022-06-10 00:00 coq10 (ubiquinol) [facility] [place] 2022-06-14 00:00 coq10 (ubiquinol) [facility] [place] 2022-07-24 00:00 coq10 (ubiquinol) Walk[facility]In [facility] [place] 2022-06-09 00:00 metoprolol succinate [facility] & Ancillary Services [place] 2022-06-10 00:00 metoprolol succinate [facility] Services [place] 2022-06-14 00:00 metoprolol succinate [facility] Services [place] 2022-07-24 00:00 metoprolol succinate [facility] [place] Problems date description facility 2022-06-09 00:00 Gastroesophageal reflux disease [facility] [place] 2022-06-09 00:00 Long-term drug therapy [facility] [place] 2022-06-09 00:00 Hyposmolality and/or hyponatremia [facility] [place] 2022-06-09 00:00 Anxiety state, unspecified [facility] [place] 2022-06-09 00:00 Chronic arthritis Walk[facility] [place] 2022-06-09 00:00 Hypertensive disorder Walk[facility] [place] 2022-06-09 00:00 Unspecified essential hypertension [facility] [place] 2022-06-09 00:00 History of malignant neoplasm of [facility]- In [facility] breast & [facility] [place] 2022-06-09 00:00 Procedure carried out on subject [facility] [place] 2022-06-09 00:00 Anxiety Walk[facility]In [facility] [place] 2022-06-09 00:00 Chronic hyponatremia [facility] [place] 2022-06-09 00:00 Esophageal reflux Walk[facility]In [facility] [place] 2022-06-09 00:00 Arthropathy, unspecified, site [facility]In [facility] Primary Care unspecified & [facility] [place] 2022-06-09 00:00 Hypo-osmolality and hyponatremia [facility] [place] 2022-06-09 00:00 Anxiety disorder, unspecified [facility] 2022-06-09 00:00 Essential (primary) hypertension [facility] 2022-06-09 00:00 Gastro-esophageal reflux disease Walk- In [facility] Primary Care without esophagitis & [facility] 2022-06-09 00:00 Unspecified osteoarthritis, Walk-In Cl [facility] Primary Care unspecified site & [facility] 2022-06-09 00:00 Long-term (current) drug use Walk-In [facility] Primary Care [facility] [place] 2022-06-09 00:00 Screening for lipoid disorders [facility] 2022-06-09 00:00 Encounter for screening for lipoid [facility] Primary Care disorders & [facility] [place] 2022-06-09 00:00 Other mcc (current) drug [facility] therapy & [facility] 2022-06-09 00:00 Personal history of malignant [facility]In [facility] neoplasm of breast & [facility] [place] Procedures date description facility 2022-06-09 00:00 Visit Code Hold Walk-In [facility] [place] 2022-06-09 00:00 MM SCR DIGITAL MAMMO BILAT [facility] [place] 2022-06-09 00:00 COMPREHENSIVE METABOLIC PANEL Walk-In [facility] Primary Care & [facility] [place] 2022-06-09 00:00 LIPIDS SCREEN [facility] [place] 2022-06-09 00:00 CBC W/Diff/Plt Walk[facility]In [facility] Care & Ancillary Services [facility] Results/Labs test date author facility value unit interpret ation Result panel 1 (unknown) (no date) (unknown) Walk-In (no value) (units (unk nown) Clinic Primary unknown) Care [facility] Result panel 2 (unknown) (no date) (unknown) Walk-In (no value) (units (unk nown) Clinic Primary unknown) [facility] [place] Result panel 3 (unknown) (no date) (unknown) Walk-In (no value) (units (unk nown) Clinic Primary unknown) [facility] [place] Result panel 4 (unknown) (no date) (unknown) Walk-In (no value) (units (unk nown) Clinic Primary unknown) [facility] Result panel 5 (unknown) (no date) (unknown) Walk-In (no value) (units (unk nown) Clinic Primary unknown) [facility] Result panel 6 (unknown) (no date) (unknown) Walk-In (no value) (units (unk nown) Clinic Primary unknown) [facility] Result panel 7 (unknown) (no date) (unknown) Walk-In (no value) (units (unk nown) Clinic Primary unknown) [facility] Result panel 8 (unknown) (no date) (unknown) Walk-In (no value) (units (unk nown) Clinic Primary unknown) [facility] Result panel 9 (unknown) (no date) (unknown) Walk-In (no value) (units (unk nown) Clinic Primary unknown) [facility] Result panel 10 (unknown) (no date) (unknown) Walk-In (no value) (units (unk nown) Clinic Primary unknown) [facility] Result panel 11 (unknown) (no date) (unknown) Walk-In (no value) (units (unk nown) Clinic Primary unknown) [facility] Result panel 12 (unknown) (no date) (unknown) Walk-In (no value) (units (unk nown) Clinic Primary unknown) [facility] Result panel 13 (unknown) (no date) (unknown) Walk-In (no value) (units (unk nown) Clinic Primary unknown) [facility] Result panel 14 (unknown) (no date) (unknown) Walk-In (no value) (units (unk nown) Clinic Primary unknown) [facility] Result panel 15 (unknown) (no date) (unknown) Walk-In (no value) (units (unk nown) Clinic Primary unknown) [facility] Result panel 16 (unknown) (no date) (unknown) Walk-In (no value) (units (unk nown) Clinic Primary unknown) [facility] Result panel 17 (unknown) (no date) (unknown) Walk-In (no value) (units (unk nown) Clinic Primary unknown) [facility] Result panel 18 (unknown) (no date) (unknown) Walk-In (no value) (units (unk nown) Clinic Primary unknown) [facility] Result panel 19 (unknown) (no date) (unknown) Walk-In (no value) (units (unk nown) Clinic Primary unknown) [facility] Result panel 20 (unknown) (no date) (unknown) Walk-In (no value) (units (unk nown) Clinic Primary unknown) [facility] Result panel 21 (unknown) (no date) (unknown) Walk-In (no value) (units (unk nown) Clinic Primary unknown) [facility] [place] Result panel 22 (unknown) (no date) (unknown) Walk-In (no value) (units (unk nown) Clinic Primary unknown) [facility] [place] Result panel 23 (unknown) (no date) (unknown) Walk-In (no value) (units (unk nown) Clinic Primary unknown) [facility] Result panel 24 (unknown) (no date) (unknown) Walk-In (no value) (units (unk nown) Clinic Primary unknown) [facility] Result panel 25 (unknown) (no date) (unknown) Walk-In (no value) (units (unk nown) Clinic Primary unknown) [facility] Result panel 26 (unknown) (no date) (unknown) Walk-In (no value) (units (unk nown) Clinic Primary unknown) [facility] Result panel 27 (unknown) (no date) (unknown) Walk-In (no value) (units (unk nown) Clinic Primary unknown) [facility] Result panel 28 (unknown) (no date) (unknown) Walk-In (no value) (units (unk nown) Clinic Primary unknown) [facility] Result panel 29 (unknown) (no date) (unknown) Walk-In (no value) (units (unk nown) Clinic Primary unknown) [facility] Result panel 30 (unknown) (no date) (unknown) Walk-In (no value) (units (unk nown) Clinic Primary unknown) [facility] Result panel 31 (unknown) (no date) (unknown) Walk-In (no value) (units (unk nown) Clinic Primary unknown) [facility] Result panel 32 (unknown) (no date) (unknown) Walk-In (no value) (units (unk nown) Clinic Primary unknown) [facility] Result panel 33 (unknown) (no date) (unknown) Walk-In (no value) (units (unk nown) Clinic Primary unknown) [facility] Result panel 34 (unknown) (no date) (unknown) Walk-In (no value) (units (unk nown) Clinic Primary unknown) [facility] Result panel 35 (unknown) (no date) (unknown) Walk-In (no value) (units (unk nown) Clinic Primary unknown) [facility] Result panel 36 (unknown) (no date) (unknown) Walk-In (no value) (units (unk nown) Clinic Primary unknown) [facility] Result panel 37 (unknown) (no date) (unknown) Walk-In (no value) (units (unk nown) Clinic Primary unknown) [facility] Result panel 38 (unknown) (no date) (unknown) Walk-In (no value) (units (unk nown) Clinic Primary unknown[facility] Result panel 39 (unknown) (no date) (unknown) Walk-In (no value) (units (unk nown) Clinic Primary unknown) [facility] Result panel 40 (unknown) (no date) (unknown) Walk-In (no value) (units (unk nown) Clinic Primary unknown[facility] Result panel 41 (unknown) (no date) (unknown) Walk-In (no value) (units (unk nown) Clinic Primary unknown) [facility] [place] Result panel 42 (unknown) (no date) (unknown) Walk-In (no value) (units (unk nown) Clinic Primary unknown) [facility] Result panel 43 (unknown) (no date) (unknown) Walk-In (no value) (units (unk nown) Clinic Primary unknown) [facility] [place] Result panel 44 (unknown) (no date) (unknown) Walk-In (no value) (units (unk nown) Clinic Primary unknown) [facility] [place] Result panel 45 (unknown) (no date) (unknown) Walk-In (no value) (units (unk nown) Clinic Primary unknown) [facility] [place] Result panel 46 (unknown) (no date) (unknown) Walk-In (no value) (units (unk nown) Clinic Primary unknown) [facility] Result panel 47 (unknown) (no date) (unknown) [facility] (no value) (units ([facility] nown[facility] Primary unknown) [facility] Result panel 48 (unknown) (no date) (unknown) Walk-[facility] (no value) (units ([facility] nown) [facility] Primary unknown) [facility] Result panel 49 (unknown) (no date) (unknown) Walk-[facility] (no value) (units ([facility] nown) [facility] Primary unknown) [facility] Result panel 50 (unknown) (no date) (unknown) Walk-In (no value) (units ([facility] nown) [facility] Primary unknown) [facility] Result panel 51 (unknown) (no date) (unknown) Walk-[facility] (no value) (units ([facility] nown) [facility] Primary unknown) [facility] Result panel 52 (unknown) (no date) (unknown) Walk-In (no value) (units ([facility] nown) [facility] Primary unknown) [facility] Result panel 53 (unknown) (no date) (unknown) Walk-In (no value) (units ([facility] nown) [facility] Primary unknown) [facility] Result panel 54 (unknown) (no date) (unknown) Walk-In (no value) (units ([facility] nown) [facility] Primary unknown) [facility] Result panel 55 (unknown) (no date) (unknown) Walk-In (no value) (units ([facility] nown) [facility] Primary unknown) [facility] Result panel 56 (unknown) (no date) (unknown) Walk-In (no value) (units ([facility] nown) [facility] Primary unknown) [facility] Result panel 57 (unknown) (no date) (unknown) Walk-In (no value) (units ([facility] nown) [facility] Primary unknown) [facility] Result panel 58 (unknown) (no date) (unknown) Walk-In (no value) (units ([facility] nown) [facility] Primary unknown) [facility] Result panel 59 (unknown) (no date) (unknown) Walk-In (no value) (units ([facility] nown) [facility] Primary unknown) [facility] Result panel 60 (unknown) (no date) (unknown) Walk-In (no value) (units ([facility] nown) [facility] Primary unknown) [facility] Result panel 61 (unknown) (no date) (unknown) Walk-In (no value) (units ([facility] nown) [facility] Primary unknown) [facility] Result panel 62 (unknown) (no date) (unknown) Walk-In (no value) (units ([facility] nown) [facility] Primary unknown) [facility] Result panel 63 (unknown) (no date) (unknown) Walk-In (no value) (units ([facility] nown) [facility] Primary unknown) [facility] Result panel 64 (unknown) (no date) (unknown) Walk-In (no value) (units ([facility] nown) [facility] Primary unknown) [facility] Result panel 65 (unknown) (no date) (unknown) Walk-In (no value) (units ([facility] nown) [facility] Primary unknown) [facility] Result panel 66 (unknown) (no date) (unknown) Walk-In (no value) (units ([facility] nown) [facility] Primary unknown) [facility] Result panel 67 (unknown) (no date) (unknown) Walk-In (no value) (units ([facility] nown) [facility] Primary unknown) [facility] Result panel 68 (unknown) (no date) (unknown) Walk-In (no value) (units ([facility] nown) [facility] Primary unknown) [facility] Result panel 69 (unknown) (no date) (unknown) Walk-In (no value) (units ([facility] nown) [facility] Primary unknown) [facility] Result panel 70 (unknown) (no date) (unknown) Walk-In (no value) (units ([facility] nown) [facility] Primary unknown) [facility] Result panel 71 (unknown) (no date) (unknown) Walk-In (no value) (units ([facility]own) [facility] Primary unknown) [facility] Result panel 72 (unknown) (no date) (unknown) Walk-In (no value) (units ([facility]own) [facility] Primary unknown) [facility] Result panel 73 (unknown) (no date) (unknown) Walk-In (no value) (units ([facility] nown) [facility] Primary unknown) [facility] Result panel 74 (unknown) (no date) (unknown) Walk-In (no value) (units ([facility] nown) [facility] Primary unknown) [facility] Result panel 75 (unknown) (no date) (unknown) Walk-In (no value) (units ([facility] nown) [facility] Primary unknown) [facility] Result panel 76 (unknown) (no date) (unknown) Walk-In (no value) (units ([facility] nown) [facility] Primary unknown) [facility] Result panel 77 (unknown) (no date) (unknown) Walk-In (no value) (units ([facility] nown) [facility] Primary unknown) [facility] Result panel 78 (unknown) (no date) (unknown) Walk-In (no value) (units ([facility]own) [facility] Primary unknown) [facility] Result panel 79 (unknown) (no date) (unknown) Walk-In (no value) (units ([facility] nown) [facility] Primary unknown) [facility] Result panel 80 (unknown) (no date) (unknown) Walk-In (no value) (units ([facility] nown) [facility] Primary unknown) [facility] Result panel 81 (unknown) (no date) (unknown) Walk-In (no value) (units ([facility]own) [facility] Primary unknown) [facility] Social History date description facility 2022-06-09 00:00 Never smoker [facility] Vital Signs date measurement value units 2022-06-09 00:00 BMI 23.77 kg/m2 2022-06-09 00:00 BP_diastolic 80 mmHg 2022-06-09 00:00 BP_diastolic 81 mmHg 2022-06-09 00:00 BP_systolic 173 mmHg 2022-06-09 00:00 BP_systolic 181 mmHg 2022-06-09 00:00 heart_rate 63 /min 2022-06-09 00:00 height_metric 162.56 cm 2022-06-09 00:00 height_standard 64 in 2022-06-09 00:00 respiration_rate 14 /min 2022-06-09 00:00 temperature_metric 36.28 C 2022-06-09 00:00 temperature_standard 97.3 F 2022-06-09 00:00 weight_metric 62.6 kg 2022-06-09 00:00 weight_standard 138 lb
--- NOTE | 2022-07-27 19:32 | XRAY Report ---
PROCEDURE: Chest 1 View X-Ray INDICATIONS: Chest Pain TECHNIQUE: One view of the chest was acquired. COMPARISON: 01/31/2019 FINDINGS: Surgical changes and devices: Bilateral breast clips and left axillary clips. Lungs and pleura: No pleural effusions or pneumothorax. Lungs are clear. Mediastinum: Mediastinal contours appear normal. Heart size is normal. Bones and chest wall: No suspicious bony lesions. Overlying soft tissues appear unremarkable. IMPRESSION: No evidence acute pulmonary process. Reviewed by: Steven Back MD on 07/27/2022 7:31 PM PST Approved by: Steven Back MD on 07/27/2022 7:31 PM PST Station ID: [id number]
[2022-07-27 19:44] LABS: BASOPHILS % (AUTO) 0.4 %; EOSINOPHILS # (AUTO) 0.2 10^3/uL (0.0-0.7); EOSINOPHILS % (AUTO) 2.3 %; HCT - HEMATOCRIT 44.4 % (37.0-47.0); HGB - HEMOGLOBIN 14.8 g/dL (12.0-16.0); LYMPHOCYTES % (AUTO) 27.2 %; MEAN CORPUSCULAR HEMOGLOBIN 28.8 pg (27.0-31.0); MEAN CORPUSCULAR HGB CONC 33.3 g/dL (32.0-36.0); MEAN CORPUSCULAR VOLUME 86.5 fL (81.0-99.0); MEAN PLATELET VOLUME 10.4 fL (7.9-10.8); MONOCYTES # (AUTO) 0.6 10^3/uL (0.0-1.0); MONOCYTES % (AUTO) 7.4 %; NEUTROPHILS # (AUTO) 4.6 10^3/uL (1.5-6.6); NEUTROPHILS % (AUTO) 62.3 %; PLT - PLATELET COUNT 217 10^3/uL (130-450); RED BLOOD COUNT 5.13 10^6/uL (4.20-5.40); RED CELL DISTRIBUTION WIDTH 12.7 % (12.0-15.0); WHITE BLOOD COUNT 7.4 x10^3/uL (4.8-10.8)
--- NOTE | 2022-07-27 20:09 | ED Physician Documentation ---
History of Present Illness - Stated complaint Stated Complaint: HEART PALP/RACING HEART - Chief complaint Chief Complaint: Cardiac - History obtained from History obtained from: Patient - History of Present Illness Timing: Today Pain level max: 0 Pain level now: 0 - Additonal information Additional information: 81-year-old female states that she has had intermittent palpitations for the past several days. She states that her max heart rate on her watch was 106. She is currently asymptomatic. No chest pain. No shortness of breath. No new medications. Nothing makes it better or worse. No recent cough, chills, fevers, infectious symptoms. No cardiac history. Review of Systems Constitutional: denies: Fever, Chills Nose: denies: Rhinorrhea / runny nose, Congestion Cardiac: denies: Chest pain / pressure Respiratory: denies: Dyspnea, Cough GI: denies: Nausea, Vomiting, Diarrhea Skin: denies: Rash Musculoskeletal: denies: Neck pain, Back pain Neurologic: denies: Headache PD PAST MEDICAL HISTORY - Past Medical History Past Medical History: Yes Cardiovascular: Hypertension Respiratory: None GI: None : None - Past Surgical History Past Surgical History: Yes General: Appendectomy - Present Medications Home Medications: Ambulatory Orders Medication Instructions Recorded Confirmed FLUoxetine [PROzac] 10 mg PO DAILY 07/02/21 07/27/22 Famotidine [Pepcid] 20 mg PO BID 07/02/21 07/27/22 Losartan [Cozaar] 50 mg PO DAILY 07/02/21 07/27/22 Metoprolol Succinate [Toprol Xl] 25 mg PO DAILY 07/02/21 07/27/22 - Allergies Allergies/Adverse Reactions: Allergies Allergy/AdvReac Type Severity Reaction Status Date / Time tolterodine tartrate * Allergy Unknown Verified 07/27/22 18:38 [From Detrol] iv dye Allergy Severe Anaphylaxis Uncoded 08/12/21 13:06 - Social History Does the pt smoke?: No Smoking Status: Never smoker Does the pt drink ETOH?: Yes Does the pt have substance abuse?: No - Immunizations Immunizations are current?: Yes PD ED PE NORMAL - Vitals Vital signs reviewed: Yes - General General: Alert and oriented X 3, No acute distress - HEENT HEENT: PERRL, Moist mucous membranes - Neck Neck: Supple, no meningeal sign - Cardiac Cardiac: RRR, No murmur, Strong equal pulses - Respiratory Respiratory: No respiratory distress, Clear bilaterally - Abdomen Abdomen: Soft, Non tender, Non distended - Derm Derm: Warm and dry - Extremities Extremities: No edema, No calf tenderness / cord - Neuro Neuro: Alert and oriented X 3 - Psych Psych: Normal mood, Normal affect Results - Vitals Vitals: Vital Signs - 24 hr 07/27/22 07/27/22 07/27/22 18:38 18:42 20:34 Temperature 36.3 C L 36.5 C Heart Rate 69 69 60 Respiratory 16 16 14 Rate Blood Pressure 227/103 H 227/103 H 169/71 H O2 Saturation 100 100 100 Oxygen O2 Source Room air - EKG (time done) 1849 Rate: Rate (enter#) (64) Rhythm: NSR Aneta: Normal Intervals: Normal [place] QRS: Normal Ischemia: Normal ST segments - Labs Labs: Laboratory Tests 07/27/22 07/27/22 07/27/22 19:34 19:34 19:34 WBC 7.4 RBC 5.13 Hgb 14.8 Hct 44.4 MCV 86.5 MCH 28.8 MCHC 33.3 RDW 12.7 Plt Count 217 MPV 10.4 Neut # (Auto) 4.6 Lymph # (Auto) 2.0 Sequoyah # (Auto) 0.6 Eos # (Auto) 0.2 Baso # (Auto) 0.0 Absolute Nucleated RBC 0.00 Nucleated RBC % 0.0 Sodium 129 L Potassium 3.9 Chloride 93 L Carbon Dioxide 27 Anion Gap 9.0 BUN 18 Creatinine 0.9 Estimated GFR (MDRD) 60 L Glucose 113 H Calcium 9.3 Phosphorus 2.7 Magnesium 2.1 Total Bilirubin 0.8 AST 18 ALT 15 Alkaline Phosphatase 83 Troponin I High Sens 4.8 Total Protein 7.1 Albumin 4.1 Globulin 3.0 Albumin/Globulin Ratio 1.4 Lipase 47 - Rads (name of study) cxr Radiology: Final report received, See rad report PD Medical Decision Making - ED course Complexity details: reviewed results, re-evaluated patient, considered differential, d/w patient, d/w family ED course: 81-year-old female with palpitations over the past few days. No arrhythmias on telemetry here. No acute findings on EKG or laboratory testing. CBC, CMP and high-sensitivity troponin are without significant abnormality other than a mild hyponatremia. Recommend that she have a Holter monitor/Zio patch with her doctor. Patient counseled regarding signs and symptoms for which I believe and urgent re-evaluation would be necessary. Patient with good understanding of and agreement to plan and is comfortable going home at this time This document was made in part using voice recognition software. While efforts are made to proofread this document, sound alike and grammatical errors may occur. Departure - Departure Disposition: Home, Self Care Clinical Impression: Palpitations Condition: Good Instructions: ED Palpitations Follow-Up: Yadira Salgado ARNP [Primary Care Provider] - Within 1 week Comments: Please contact your primary care provider for further care. I recommend that they place you on a Zio patch or Holter monitor to evaluate you for any arrhythmias. Your testing is normal tonight. Please return if you worsen. You can also record an ECG on your Apple Watch as you were shown tonight, this will help us to see if there is an arrhythmia as well. Discharge Date/Time: 07/27/22 20:46
[2022-07-27 20:25] LABS: ALBUMIN 4.1 g/dL (3.2-5.5); ALBUMIN/GLOBULIN RATIO 1.4 (1.0-2.2); BILIRUBIN,TOTAL 0.8 mg/dL (0.2-1.0); CALCIUM 9.3 mg/dL (8.5-10.3); CREATININE 0.9 mg/dL (0.4-1.0); MAGNESIUM 2.1 mg/dL (1.7-2.8); PHOSPHORUS 2.7 mg/dL (2.5-4.6); POTASSIUM 3.9 mmol/L (3.5-5.0); TOTAL PROTEIN 7.1 g/dL (6.7-8.2)
[2022-07-27 20:35] VITALS: BP 169/71
== END 2022-07-27 20:46 | disposition home or self-care (01) ==
LOC: ED 18:33
DX: R00.2 Palpitations (principal); I10 Essential (primary) hypertension
CPT/HCPCS: 36415; 80053; 83690; 83735; 84100; 84484; 85025; 93005; 99284

== ENCOUNTER 2022-09-03 13:34 | Outpatient (CLI) | payer MEDICARE, OTHER | END 2022-09-03 13:35 | disposition home or self-care (01) | LOC: MAC.INF 13:34 | PROVIDERS: ATTEND Nurse Practitioner Acute Care | DX: R00.2 Palpitations (principal) | CPT/HCPCS: 93242 ==

== ENCOUNTER 2022-09-24 10:30 | Outpatient (CLI) | payer MEDICARE, OTHER | END 2022-09-24 10:31 | disposition home or self-care (01) | LOC: MAC.INF 10:30 | PROVIDERS: ATTEND Nurse Practitioner Acute Care | DX: I47.1 Supraventricular tachycardia (principal); I49.8 Other specified cardiac arrhythmias; I45.89 Other specified conduction disorders; I49.1 Atrial premature depolarization; I49.3 Ventricular premature depolarization | CPT/HCPCS: 93244 ==

== ENCOUNTER 2022-09-29 16:35 | Emergency (ER) | payer MEDICARE, OTHER ==
--- NOTE | 2022-09-29 16:55 | ED Physician Documentation ---
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 had a mild KNUTSON as well 5/10. gradual onset. Took her BP and it was approx 200/110. She took 2 tylenol and KNUTSON is now a 2/10 and symptoms have all resolved. No focal neuro deficits. Review of Systems Constitutional: denies: Fever, Chills Skin: denies: Rash Musculoskeletal: denies: Neck pain, Back pain Neurologic: denies: Headache PD PAST MEDICAL HISTORY - Past Medical History Past Medical History: Yes Cardiovascular: Hypertension Respiratory: None GI: None : None - Past Surgical History Past Surgical History: Yes General: Appendectomy - Present Medications Home Medications: Ambulatory Orders Medication Instructions Recorded Confirmed FLUoxetine [PROzac] 10 mg PO DAILY 07/02/21 09/29/22 Famotidine [Pepcid] 20 mg PO BID 07/02/21 09/29/22 Losartan [Cozaar] 50 mg PO DAILY 07/02/21 09/29/22 Metoprolol Succinate [Toprol Xl] 25 mg PO DAILY 07/02/21 09/29/22 - Allergies Allergies/Adverse Reactions: Allergies Allergy/AdvReac Type Severity Reaction Status Date / Time tolterodine tartrate * Allergy Unknown Verified 07/27/22 18:38 [From Detrol] iv dye Allergy Severe Anaphylaxis Uncoded 08/12/21 13:06 - Social History Does the pt smoke?: No Smoking Status: Never smoker Does the pt drink ETOH?: Yes Does the pt have substance abuse?: No - Immunizations Immunizations are current?: Yes PD ED PE NORMAL - Vitals Vital signs reviewed: Yes - General General: Alert and oriented X 3, No acute distress - HEENT HEENT: Atraumatic, PERRL, EOMI, Ears normal, Moist mucous membranes - Neck Neck: Supple, no meningeal sign - Cardiac Cardiac: RRR, Strong equal pulses - Respiratory Respiratory: No respiratory distress, Clear bilaterally - Abdomen Abdomen: Soft, Non tender, Non distended - Back Back: No CVA TTP, No spinal TTP - Derm Derm: Warm and dry - Extremities Extremities: No edema, No calf tenderness / cord - Neuro Neuro: Alert and oriented X 3, automatic pinsetter adjuster 2-12 intact, No motor deficit, No sensory deficit, Normal speech Eye Opening: Spontaneous Motor: Obeys Commands Verbal: Oriented GCS Score: 15 - Psych Psych: Normal mood, Normal affect Results - Vitals Vitals: Vital Signs - 24 hr 09/29/22 09/29/22 16:43 18:09 Temperature 37.1 C 37 C Heart Rate 66 60 Respiratory 20 14 Rate Blood Pressure 176/98 H 154/67 H O2 Saturation 100 98 Oxygen O2 Source Room air - EKG (time done) 1716 EKG releavant findings:: EKG personally interpreted by author of this note. Relevant findings are: Rate: Rate (enter#) (59) Rhythm: NSR [place]: Normal Intervals: Normal [place] QRS: Normal Ischemia: Normal ST segments, Q waves (V1-2) - Labs Labs: Laboratory Tests 09/29/22 09/29/22 09/29/22 16:56 17:27 17:27 WBC 7.0 RBC 4.81 Hgb 14.3 Hct 42.0 MCV 87.3 MCH 29.7 MCHC 34.0 RDW 13.0 Plt Count 205 MPV 10.1 Neut # (Auto) 5.2 Lymph # (Auto) 1.2 L Elbert # (Auto) 0.5 Eos # (Auto) 0.2 Baso # (Auto) 0.0 Absolute Nucleated RBC 0.00 Nucleated RBC % 0.0 Sodium 131 L Potassium 3.9 Chloride 97 L Carbon Dioxide 27 Anion Gap 7.0 BUN 17 Creatinine 0.7 Estimated GFR (MDRD) 80 L Glucose 167 H Calcium 8.8 Total Bilirubin 0.6 AST 19 ALT 18 Alkaline Phosphatase 65 Troponin I High Sens Total Protein 6.3 L Albumin 3.8 Globulin 2.5 Albumin/Globulin Ratio 1.5 Urine Color YELLOW Urine Clarity CLEAR Urine pH 6.0 Ur Specific [place] 1.015 Urine Protein NEGATIVE Urine Glucose (UA) NEGATIVE Urine Ketones NEGATIVE Urine Occult Blood NEGATIVE Urine Nitrite NEGATIVE Urine Bilirubin NEGATIVE Urine Urobilinogen 0.2 (NORMAL) Ur Leukocyte Esterase SMALL H Urine RBC None Seen Urine WBC 4-5 Ur Squamous Epith Cells RARE Squamous Urine Bacteria None Seen Ur Microscopic Review INDICATED Urine Culture Comments INDICATED 09/29/22 17:27 WBC RBC Hgb Hct MCV MCH MCHC RDW Plt Count MPV Neut # (Auto) Lymph # (Auto) Elbert # (Auto) Eos # (Auto) Baso # (Auto) Absolute Nucleated RBC Nucleated RBC % Sodium Potassium Chloride Carbon Dioxide Anion Gap BUN Creatinine Estimated GFR (MDRD) Glucose Calcium Total Bilirubin AST ALT Alkaline Phosphatase Troponin I High Sens 4.1 Total Protein Albumin Globulin Albumin/Globulin Ratio Urine Color Urine Clarity Urine pH Ur Specific [place] Urine Protein Urine Glucose (UA) Urine Ketones Urine Occult Blood Urine Nitrite Urine Bilirubin Urine Urobilinogen Ur Leukocyte Esterase Urine RBC Urine WBC Ur Squamous Epith Cells Urine Bacteria Ur Microscopic Review Urine Culture Comments - Rads (name of study) CT head Relevant Findings:: Final report received, See rad report PD Medical Decision Making - ED course Complexity details: reviewed results, re-evaluated patient, considered differential, d/w patient, d/w family ED course: Patient is very well-appearing, nontoxic. Afebrile. NIH stroke scale of 0. Head CT does not show any acute abnormalities. She is asymptomatic in the emergency department. Upon further history this appears to happen to her rather frequently, frequently associated with elevated blood pressure. Recommend that she follow-up with her doctor for further evaluation and care. Her doctor may want to prescribe as needed blood pressure medication as well for when she has breakthrough spikes. She states that normally her blood pressure at home is in the 130s systolic. Patient fully asymptomatic here. Patient counseled regarding signs and symptoms for which I believe and urgent re-evaluation would be necessary. Patient with good understanding of and agreement to plan and is comfortable going home at this time This document was made in part using voice recognition software. While efforts are made to proofread this document, sound alike and grammatical errors may occur. Departure - Departure Disposition: 01 Home, Self Care Clinical Impression: Altered mental status Qualifiers: Altered mental status type: transient alteration of awareness Qualified Code(s): R40.4 - Transient alteration of awareness Headache Qualifiers: Headache type: unspecified Headache chronicity pattern: acute headache I ntractability: not intractable Qualified Code(s): R51.9 - Headache, unspecified Hypertension Qualifiers: Hypertension type: unspecified Qualified Code(s): I10 - Essential (primary) hypertension Condition: Good Instructions: ED Cephalgia Unspecified Follow-Up: your,doctor tomorrow [Other] Comments: Your head CT, laboratory testing did not show any acute abnormalities today. You have mildly low sodium, this is a chronic condition for you. Your blood pressure has come down as well. It is recommended that you follow-up with your doctor for further care. You may benefit from and as needed blood pressure medication that you can take when your blood pressure is elevated. Please contact your doctor tomorrow to discuss this. Please return if you worsen. Discharge Date/Time: 09/29/22 18:11 NIHSS - Time Time: 16:55 - Level of Consciousness Level of consciousness: (0) Alert, Keenly responsive LOC Questions: (0) Answers both Q's correct LOC Commands: (0) Performs both correctly - Gaze Best Gaze: (0) Normal - Visual Visual: (0) No loss - Facial Palsy Facial Palsy: (0) Normal, symmetrical movement - Motor Arms (both separate) Motor Arm (right): (0) No drift Motor Arm (left): (0) No drift - Motor Legs (both separate) Motor Leg (right): (0) No drift Motor Leg (left): (0) No drift - Limb Ataxia Limb Ataxia: (0) Absent - Sensory Sensory: (0) Normal - Best Language Best Language: (0) No aphasia - Dysarthria Dysarthria: (0) Normal - Extinction and Inattention (formally neg Extinction and inattention: (0) No abnormality - Total Score/Results Total Score/Result: 0
[2022-09-29 17:10] LABS: BILIRUBIN,URINE NEGATIVE (NEGATIVE); GLUCOSE, URINE (UA) NEGATIVE (NEGATIVE); KETONES,URINE (UA) NEGATIVE (NEGATIVE); LEUKOCYTE ESTERASE, URINE SMALL (NEGATIVE); NITRITE,URINE NEGATIVE (NEGATIVE); OCCULT BLOOD,URINE NEGATIVE (NEGATIVE); PROTEIN,URINE NEGATIVE (NEGATIVE); UROBILINOGEN,URINE 0.2 (NORMAL) E.U./dL (NORMAL)
--- NOTE | 2022-09-29 17:17 | CT Report ---
PROCEDURE: HEAD WO INDICATIONS: confusion, KNUTSON, elevated BP TECHNIQUE: Noncontrast 4.5 mm thick angled axial sections acquired from the foramen magnum to the vertex. For r adiation dose reduction, the following was used: automated exposure control, adjustment of mA and/or kV according to patient size. COMPARISON: 08/13/2019 to FINDINGS: Image quality: Excellent. CSF spaces: Basal cisterns are patent. No extra-axial fluid collections. The ventricles are symmet jing in size and shape. Brain: No intracranial bleeds or masses. There is cerebral volume loss for age, with resultant vent ricular and sulcal prominence. There are periventricular and deep white matter chronic small vessel ischemic changes. There is intracranial internal carotid artery atherosclerosis. Skull and face: Calvarium and visualized facial bones appear intact, without suspicious lesions. Sinuses: Visualized sinuses and mastoids are clear. IMPRESSION: 1. No CT evidence of acute intracranial abnormalities. No significant changes from previous study. Reviewed by: Nhan Lockwood MD on 09/29/2022 5:16 PM PDT Approved by: Nhan Lockwood MD on 09/29/2022 5:16 PM PDT Station ID: [id number]
[2022-09-29 17:20] LABS: CLARITY,URINE CLEAR (CLEAR)
[2022-09-29 17:21] LABS: BACTERIA,URINE None Seen /HPF (None Seen); RBC,URINE None Seen /HPF (0-5); SQUAMOUS EPITHELIAL CELL,UR RARE Squamous (<= Few)
[2022-09-29 17:35] LABS: BASOPHILS % (AUTO) 0.3 %; EOSINOPHILS # (AUTO) 0.2 10^3/uL (0.0-0.7); EOSINOPHILS % (AUTO) 2.1 %; HGB - HEMOGLOBIN 14.3 g/dL (12.0-16.0); LYMPHOCYTES # (AUTO) 1.2 10^3/uL (1.5-3.5); LYMPHOCYTES % (AUTO) 16.8 %; MEAN CORPUSCULAR HEMOGLOBIN 29.7 pg (27.0-31.0); MEAN CORPUSCULAR VOLUME 87.3 fL (81.0-99.0); MEAN PLATELET VOLUME 10.1 fL (7.9-10.8); MONOCYTES # (AUTO) 0.5 10^3/uL (0.0-1.0); MONOCYTES % (AUTO) 6.8 %; NEUTROPHILS # (AUTO) 5.2 10^3/uL (1.5-6.6); NEUTROPHILS % (AUTO) 73.9 %; PLT - PLATELET COUNT 205 10^3/uL (130-450); RED BLOOD COUNT 4.81 10^6/uL (4.20-5.40)
[2022-09-29 17:47] LABS: ALBUMIN 3.8 g/dL (3.2-5.5); ALBUMIN/GLOBULIN RATIO 1.5 (1.0-2.2); BILIRUBIN,TOTAL 0.6 mg/dL (0.2-1.0); CALCIUM 8.8 mg/dL (8.5-10.3); CREATININE 0.7 mg/dL (0.4-1.0); POTASSIUM 3.9 mmol/L (3.5-5.0); TOTAL PROTEIN 6.3 g/dL (6.7-8.2)
--- OUTSIDE RECORDS SUMMARY | 2022-09-29 18:02 | EXTERNAL MEDICAL SUMMARY RPT | Continuity of Care Document ---
:1940 Author Organization [facility] Address [address] [place] [address] Phone Care Team Providers Name Role Phone Unavailable Unavailable Unavailable Yadira Caal Unavailable Unavailable Allergies No information. Encounters No information. Functional Status No information. Immunizations No information. Medications date description facility 2022-07-24 00:00 famotidine [facility] 2022-07-27 00:00 famotidine [facility] 2022-07-28 00:00 famotidine [facility] 2022-07-29 00:00 famotidine [facility] 2022-07-30 00:00 famotidine [facility] 2022-08-14 00:00 famotidine [facility] 2022-07-29 00:00 metoprolol succinate [facility] 2022-07-30 00:00 metoprolol succinate [facility] 2022-08-14 00:00 metoprolol succinate [facility] 2022-07-24 00:00 ascorbic acid (vitamin c) [facility] 2022-07-27 00:00 ascorbic acid (vitamin c) [facility] 2022-07-28 00:00 ascorbic acid (vitamin c) Walk[facility]In Clin [facility] 2022-07-29 00:00 ascorbic acid (vitamin c) [facility] 2022-07-30 00:00 ascorbic acid (vitamin c) Walk[facility]In Clin [facility] 2022-08-14 00:00 ascorbic acid (vitamin c) Walk[facility]In [facility] 2022-07-29 00:00 metoprolol succinate [facility] 2022-07-30 00:00 metoprolol succinate [facility] 2022-08-14 00:00 metoprolol succinate [facility] 2022-07-24 00:00 ascorbic acid (vitamin c) [facility] 2022-07-27 00:00 ascorbic acid (vitamin c) Walk[facility] 2022-07-28 00:00 ascorbic acid (vitamin c) Walk[facility]In [facility] 2022-07-29 00:00 ascorbic acid (vitamin c) Walk-In [employer] [facility] 2022-07-30 00:00 ascorbic acid (vitamin c) Walk[facility]In Clin ic [facility] 2022-08-14 00:00 ascorbic acid (vitamin c) Walk-In [employer] [facility] 2022-07-24 00:00 cholecalciferol (vitamin d3) Walk-In [facility] 2022-07-27 00:00 cholecalciferol (vitamin d3) Walk-In [facility] 2022-07-28 00:00 cholecalciferol (vitamin d3) Walk-In [facility] 2022-07-29 00:00 cholecalciferol (vitamin d3) Walk-In [facility] 2022-07-30 00:00 cholecalciferol (vitamin d3) Walk-In [facility] 2022-08-14 00:00 cholecalciferol (vitamin d3) Walk-In [facility] 2022-07-24 00:00 vitamin c99-igrtc acid [facility]In [facility] 2022-07-27 00:00 vitamin v00-yskgu acid [facility] 2022-07-28 00:00 vitamin t36-ztabw acid [facility] 2022-07-29 00:00 vitamin h81-xmtsq acid [facility] 2022-07-30 00:00 vitamin d65-bcwps acid [facility] 2022-08-14 00:00 vitamin c98-nursd acid [facility] 2022-07-24 00:00 amlodipine [facility] 2022-07-27 00:00 amlodipine [facility] 2022-07-28 00:00 amlodipine [facility] 2022-07-29 00:00 amlodipine [facility] 2022-07-30 00:00 amlodipine [facility] 2022-08-14 00:00 amlodipine [facility] 2022-07-29 00:00 metoprolol succinate [facility] 2022-07-30 00:00 metoprolol succinate [facility] 2022-08-14 00:00 metoprolol succinate [facility] 2022-07-29 00:00 metoprolol succinate [facility] 2022-07-30 00:00 metoprolol succinate [facility] 2022-08-14 00:00 metoprolol succinate [facility] 2022-07-24 00:00 amlodipine [facility] 2022-07-27 00:00 amlodipine [facility] 2022-07-28 00:00 amlodipine [facility] 2022-07-29 00:00 amlodipine [facility] 2022-07-30 00:00 amlodipine [facility] 2022-08-14 00:00 amlodipine [facility] 2022-07-24 00:00 famotidine [facility] 2022-07-27 00:00 famotidine [facility] 2022-07-28 00:00 famotidine [facility] 2022-07-29 00:00 famotidine [facility] 2022-07-30 00:00 famotidine [facility] 2022-08-14 00:00 famotidine [facility] 2022-07-24 00:00 fluoxetine [facility] 2022-07-27 00:00 fluoxetine [facility] 2022-07-28 00:00 fluoxetine [facility] 2022-07-29 00:00 fluoxetine [facility] 2022-07-30 00:00 fluoxetine [facility] 2022-08-14 00:00 fluoxetine [facility] 2022-07-24 00:00 famotidine [facility] 2022-07-27 00:00 famotidine [facility] 2022-07-28 00:00 famotidine [facility] 2022-07-29 00:00 famotidine [facility] 2022-07-30 00:00 famotidine [facility] 2022-08-14 00:00 famotidine [facility] 2022-07-24 00:00 fluoxetine [facility] 2022-07-27 00:00 fluoxetine [facility] 2022-07-28 00:00 fluoxetine [facility] 2022-07-29 00:00 fluoxetine [facility] 2022-07-30 00:00 fluoxetine [facility] 2022-08-14 00:00 fluoxetine [facility] 2022-07-29 00:00 metoprolol succinate [facility] 2022-07-30 00:00 metoprolol succinate [facility] 2022-08-14 00:00 metoprolol succinate [facility] 2022-07-29 00:00 metoprolol succinate [facility] 2022-07-30 00:00 metoprolol succinate [facility] 2022-08-14 00:00 metoprolol succinate [facility] 2022-07-24 00:00 amlodipine [facility] 2022-07-27 00:00 amlodipine [facility] 2022-07-28 00:00 amlodipine [facility] 2022-07-29 00:00 amlodipine [facility] 2022-07-30 00:00 amlodipine [facility] 2022-08-14 00:00 amlodipine [facility] 2022-07-24 00:00 losartan [facility] 2022-07-27 00:00 losartan [facility] 2022-07-28 00:00 losartan [facility] 2022-07-29 00:00 losartan [facility] 2022-07-30 00:00 losartan [facility] 2022-08-14 00:00 losartan [facility] 2022-07-24 00:00 rosuvastatin [facility] 2022-07-27 00:00 rosuvastatin [facility] 2022-07-28 00:00 rosuvastatin [facility] 2022-07-29 00:00 rosuvastatin [facility] 2022-07-30 00:00 rosuvastatin [facility] 2022-08-14 00:00 rosuvastatin [facility] 2022-07-24 00:00 losartan [facility] 2022-07-27 00:00 losartan [facility] 2022-07-28 00:00 losartan [facility] 2022-07-29 00:00 losartan [facility] 2022-07-30 00:00 losartan [facility] 2022-08-14 00:00 losartan [facility] 2022-07-24 00:00 famotidine [facility] 2022-07-27 00:00 famotidine [facility] 2022-07-28 00:00 famotidine [facility] 2022-07-29 00:00 famotidine [facility] 2022-07-30 00:00 famotidine [facility] 2022-08-14 00:00 famotidine [facility] 2022-07-24 00:00 fluoxetine [facility] 2022-07-27 00:00 fluoxetine [facility] 2022-07-28 00:00 fluoxetine [facility] 2022-07-29 00:00 fluoxetine [facility] 2022-07-30 00:00 fluoxetine [facility] 2022-08-14 00:00 fluoxetine [facility] 2022-07-24 00:00 fluoxetine [facility] 2022-07-27 00:00 fluoxetine [facility] 2022-07-28 00:00 fluoxetine [facility] 2022-07-29 00:00 fluoxetine [facility] 2022-07-30 00:00 fluoxetine [facility] 2022-08-14 00:00 fluoxetine [facility] 2022-07-24 00:00 vitamin g23-viumv acid [facility] 2022-07-27 00:00 vitamin k33-wwqma acid [facility] 2022-07-28 00:00 vitamin m65-hgmmx acid [facility] 2022-07-29 00:00 vitamin b16-xauvl acid [facility] 2022-07-30 00:00 vitamin f29-xrqse acid [facility] 2022-08-14 00:00 vitamin y64-itydr acid [facility] 2022-07-24 00:00 amlodipine [facility] 2022-07-27 00:00 amlodipine [facility] 2022-07-28 00:00 amlodipine [facility] 2022-07-29 00:00 amlodipine [facility] 2022-07-30 00:00 amlodipine [facility] 2022-08-14 00:00 amlodipine [facility] 2022-07-24 00:00 losartan [facility] 2022-07-27 00:00 losartan [facility] 2022-07-28 00:00 losartan [facility] 2022-07-29 00:00 losartan [facility] 2022-07-30 00:00 losartan [facility] 2022-08-14 00:00 losartan [facility] 2022-07-24 00:00 rosuvastatin [facility] 2022-07-27 00:00 rosuvastatin [facility] 2022-07-28 00:00 rosuvastatin [facility] 2022-07-29 00:00 rosuvastatin [facility] 2022-07-30 00:00 rosuvastatin [facility] 2022-08-14 00:00 rosuvastatin [facility] 2022-07-29 00:00 metoprolol succinate [facility] 2022-07-30 00:00 metoprolol succinate [facility] 2022-08-14 00:00 metoprolol succinate [facility] 2022-07-24 00:00 ascorbic acid (vitamin c) Walk[facility]In [facility] 2022-07-27 00:00 ascorbic acid (vitamin c) [facility]In [facility] 2022-07-28 00:00 ascorbic acid (vitamin c) [facility]In [facility] 2022-07-29 00:00 ascorbic acid (vitamin c) [facility] 2022-07-30 00:00 ascorbic acid (vitamin c) [facility] 2022-08-14 00:00 ascorbic acid (vitamin c) [facility] 2022-07-24 00:00 cholecalciferol (vitamin d3) Walk-In [facility] 2022-07-27 00:00 cholecalciferol (vitamin d3) Walk-In [facility] 2022-07-28 00:00 cholecalciferol (vitamin d3) Walk-In [facility] 2022-07-29 00:00 cholecalciferol (vitamin d3) Walk-In [facility] 2022-07-30 00:00 cholecalciferol (vitamin d3) Walk-In [facility] 2022-08-14 00:00 cholecalciferol (vitamin d3) Walk-In [facility] 2022-07-24 00:00 cholecalciferol (vitamin d3) Walk-In [facility] 2022-07-27 00:00 cholecalciferol (vitamin d3) Walk-In [facility] 2022-07-28 00:00 cholecalciferol (vitamin d3) Walk[facility]In [facility] 2022-07-29 00:00 cholecalciferol (vitamin d3) Walk-In [facility] 2022-07-30 00:00 cholecalciferol (vitamin d3) Walk-In [facility] 2022-08-14 00:00 cholecalciferol (vitamin d3) Walk-In [facility] 2022-07-24 00:00 cholecalciferol (vitamin d3) Walk-In [facility] 2022-07-27 00:00 cholecalciferol (vitamin d3) Walk-In [facility] 2022-07-28 00:00 cholecalciferol (vitamin d3) Walk-In [facility] 2022-07-29 00:00 cholecalciferol (vitamin d3) Walk-In [facility] 2022-07-30 00:00 cholecalciferol (vitamin d3) Walk-In [facility] 2022-08-14 00:00 cholecalciferol (vitamin d3) Walk-In [facility] 2022-07-24 00:00 rosuvastatin [facility] 2022-07-27 00:00 rosuvastatin [facility] 2022-07-28 00:00 rosuvastatin [facility] 2022-07-29 00:00 rosuvastatin [facility] 2022-07-30 00:00 rosuvastatin [facility] 2022-08-14 00:00 rosuvastatin [facility] 2022-07-24 00:00 vitamin v94-ctpeb acid [facility] 2022-07-27 00:00 vitamin z65-hgqaq acid [facility] 2022-07-28 00:00 vitamin g67-xiqee acid [facility] 2022-07-29 00:00 vitamin e74-dgblt acid [facility] 2022-07-30 00:00 vitamin f05-jwrjt acid [facility] 2022-08-14 00:00 vitamin h68-vgwzi acid [facility] 2022-07-24 00:00 rosuvastatin [facility] 2022-07-27 00:00 rosuvastatin [facility] 2022-07-28 00:00 rosuvastatin [facility] 2022-07-29 00:00 rosuvastatin [facility] 2022-07-30 00:00 rosuvastatin [facility] 2022-08-14 00:00 rosuvastatin [facility] 2022-07-29 00:00 metoprolol succinate [facility] 2022-07-30 00:00 metoprolol succinate [facility] 2022-08-14 00:00 metoprolol succinate [facility] 2022-07-24 00:00 losartan [facility] 2022-07-27 00:00 losartan [facility] 2022-07-28 00:00 losartan [facility] 2022-07-29 00:00 losartan [facility] 2022-07-30 00:00 losartan [facility] 2022-08-14 00:00 losartan [facility] 2022-07-24 00:00 coq10 (ubiquinol) [facility] 2022-07-27 00:00 coq10 (ubiquinol) [facility] 2022-07-28 00:00 coq10 (ubiquinol) [facility] 2022-07-29 00:00 coq10 (ubiquinol) [facility] 2022-07-30 00:00 coq10 (ubiquinol) [facility] 2022-08-14 00:00 coq10 (ubiquinol) [facility] 2022-07-24 00:00 metoprolol succinate [facility] 2022-07-27 00:00 metoprolol succinate [facility] 2022-07-28 00:00 metoprolol succinate [facility] 2022-07-29 00:00 metoprolol succinate [facility] 2022-07-30 00:00 metoprolol succinate [facility] 2022-08-14 00:00 metoprolol succinate [facility] Problems date description facility 2022-07-29 00:00 Palpitations [facility] Procedures date description facility 2022-07-29 00:00 Visit Code Hold [facility] Results/Labs test date author facility value unit [...] [facility] Result panel 82 (unknown) (no date) (unknown) Walk-In (no value) (units ([facility] nown) [facility]) [facility] Result panel 83 (unknown) (no date) (unknown) Walk-In (no value) (units ([facility] nown) Clinic Primary [facility] Result panel 84 (unknown) (no date) (unknown) Walk-In (no value) (units ([facility] nown) Clinic Primary [facility] Result panel 85 (unknown) (no date) (unknown) Walk-In (no value) (units ([facility] nown) Clinic [facility] Result panel 86 (unknown) (no date) (unknown) Walk-In (no value) (units ([facility] nown) Clinic [facility] Result panel 87 (unknown) (no date) (unknown) Walk-In (no value) (units ([facility] nown) Clinic [facility] Result panel 88 (unknown) (no date) (unknown) Walk-In (no value) (units ([facility] nown) Clinic Primary [facility] Result panel 89 (unknown) (no date) (unknown) Walk-In (no value) (units (unk nown) Clinic Primary unknown) [facility] Result panel 90 (unknown) (no date) (unknown) [facility] Result panel 91 (unknown) (no date) (unknown) [facility] (no value[facility] Result panel 92 (unknown) (no date) (unknown) [facility] (no value[facility] Result panel 93 (unknown) (no date) (unknown) [facility] (no value) [facility] Result panel 94 (unknown) (no date) (unknown) [facility] (no value) [facility] Result panel 95 (unknown) (no date) (unknown) [facility] (no value) [facility] Result panel 96 (unknown) (no date) (unknown) [facility] (no value) [facility] Result panel 97 (unknown) (no date) (unknown) [facility] (no value) [facility] Result panel 98 (unknown) (no date) (unknown) [facility] (no value) [facility] Result panel 99 (unknown) (no date) (unknown) [facility] (no value) [facility] Result panel 100 (unknown) (no date) (unknown) [facility] (no value) [facility] Result panel 101 (unknown) (no date) (unknown) [facility] (no value) [facility] Result panel 102 (unknown) (no date) (unknown) [facility] (no value) [facility] Result panel 103 (unknown) (no date) (unknown) [facility] (no value) [facility] Result panel 104 (unknown) (no date) (unknown) [facility] (no value) [facility] Result panel 105 (unknown) (no date) (unknown) [facility] (no value) [facility] Result panel 106 (unknown) (no date) (unknown) [facility] (no value) [facility] Result panel 107 (unknown) (no date) (unknown) [facility] (no value) [facility] Result panel 108 (unknown) (no date) (unknown) [facility] (no value) [facility] Result panel 109 (unknown) (no date) (unknown) [facility] (no value) [facility] Result panel 110 (unknown) (no date) (unknown) [facility] (no value) [facility] Result panel 111 (unknown) (no date) (unknown) [facility] (no value) [facility] Result panel 112 (unknown) (no date) (unknown) [facility] (no value) [facility] Result panel 113 (unknown) (no date) (unknown) [facility] (no value) [facility] Result panel 114 (unknown) (no date) (unknown) [facility] (no value) [facility] Result panel 115 (unknown) (no date) (unknown) [facility] (no value) [facility] Result panel 116 (unknown) (no date) (unknown) [facility] (no value) [facility] Result panel 117 (unknown) (no date) (unknown) [facility] (no value) [facility] Result panel 118 (unknown) (no date) (unknown) [facility] (no value) [facility] Result panel 119 (unknown) (no date) (unknown) [facility] (no value) [facility] Result panel 120 (unknown) (no date) (unknown) [facility] (no value) [facility] Result panel 121 (unknown) (no date) (unknown) [facility] (no value) [facility] Result panel 122 (unknown) (no date) (unknown) [facility] (no value) [facility] Result panel 123 (unknown) (no date) (unknown) [facility] (no value) [facility] Result panel 124 (unknown) (no date) (unknown) [facility] (no value) [facility] Result panel 125 (unknown) (no date) (unknown) [facility] (no value) [facility] Result panel 126 (unknown) (no date) (unknown) [facility] (no value) [facility] Result panel 127 (unknown) (no date) (unknown) [facility] (no value) [facility] Result panel 128 (unknown) (no date) (unknown) [facility] (no value) [facility] Result panel 129 (unknown) (no date) (unknown) [facility] (no value) [facility] Result panel 130 (unknown) (no date) (unknown) [facility] (no value) [facility] Result panel 131 (unknown) (no date) (unknown) [facility] (no value) [facility] Result panel 132 (unknown) (no date) (unknown) [facility] (no value) [facility] Result panel 133 (unknown) (no date) (unknown) [facility] (no value) [facility] Result panel 134 (unknown) (no date) (unknown) [facility] (no value) [facility] Result panel 135 (unknown) (no date) (unknown) [facility] (no value) [facility] Result panel 136 (unknown) (no date) (unknown) [facility] (no value) [facility] Result panel 137 (unknown) (no date) (unknown) [facility] (no value) [facility] Result panel 138 (unknown) (no date) (unknown) [facility] (no value) [facility] Result panel 139 (unknown) (no date) (unknown) [facility] (no value) [facility] Result panel 140 (unknown) (no date) (unknown) [facility] (no value) [facility] Result panel 141 (unknown) (no date) (unknown) [facility] (no value) [facility] Result panel 142 (unknown) (no date) (unknown) [facility] (no value) [facility] Result panel 143 (unknown) (no date) (unknown) [facility] (no value) [facility] Result panel 144 (unknown) (no date) (unknown) [facility] (no value) [facility] Result panel 145 (unknown) (no date) (unknown) [facility] (no value) [facility] Result panel 146 (unknown) (no date) (unknown) [facility] (no value) [facility] Result panel 147 (unknown) (no date) (unknown) [facility] (no value) [facility] Result panel 148 (unknown) (no date) (unknown) [facility] (no value) [facility] Result panel 149 (unknown) (no date) (unknown) [facility] (no value) [facility] Result panel 150 (unknown) (no date) (unknown) [facility] (no value) [facility] Result panel 151 (unknown) (no date) (unknown) [facility] (no value) [facility] Result panel 152 (unknown) (no date) (unknown) [facility] (no value) [facility] Result panel 153 (unknown) (no date) (unknown) [facility] (no value) [facility] Result panel 154 (unknown) (no date) (unknown) [facility] (no value) [facility] Result panel 155 (unknown) (no date) (unknown) [facility] (no value) [facility] Result panel 156 (unknown) (no date) (unknown) [facility] (no value) [facility] Result panel 157 (unknown) (no date) (unknown) [facility] (no value) [facility] Result panel 158 (unknown) (no date) (unknown) [facility] (no value) [facility] Result panel 159 (unknown) (no date) (unknown) [facility] (no value) [facility] Result panel 160 (unknown) (no date) (unknown) [facility] (no value) [facility] Result panel 161 (unknown) (no date) (unknown) [facility] (no value) [facility] Result panel 162 (unknown) (no date) (unknown) [facility] (no value) [facility] Result panel 163 (unknown) (no date) (unknown) [facility] (no value) [facility] Result panel 164 (unknown) (no date) (unknown) [facility] (no value) [facility] Result panel 165 (unknown) (no date) (unknown) [facility] (no value) [facility] Result panel 166 (unknown) (no date) (unknown) [facility] (no value) [facility] Result panel 167 (unknown) (no date) (unknown) [facility] (no value) [facility] Result panel 168 (unknown) (no date) (unknown) [facility] (no value) [facility] Result panel 169 (unknown) (no date) (unknown) [facility] (no value) [facility] Result panel 170 (unknown) (no date) (unknown) [facility] (no value) [facility] Result panel 171 (unknown) (no date) (unknown) [facility] (no value) [facility] Result panel 172 (unknown) (no date) (unknown) [facility] (no value) [facility] Result panel 173 (unknown) (no date) (unknown) [facility] (no value) [facility] Result panel 174 (unknown) (no date) (unknown) [facility] (no value) [facility] Result panel 175 (unknown) (no date) (unknown) [facility] (no value) [facility] Result panel 176 (unknown) (no date) (unknown) [facility] (no value) [facility] Result panel 177 (unknown) (no date) (unknown) [facility] (no value) [facility] Result panel 178 (unknown) (no date) (unknown) [facility] (no value) [facility] Result panel 179 (unknown) (no date) (unknown) [facility] (no value) [facility] Result panel 180 (unknown) (no date) (unknown) [facility] (no value) [facility] Result panel 181 (unknown) (no date) (unknown) [facility] (no value) [facility] Result panel 182 (unknown) (no date) (unknown) [facility] (no value) [facility] Result panel 183 (unknown) (no date) (unknown) [facility] (no value) [facility] Result panel 184 (unknown) (no date) (unknown) [facility] (no value) [facility] Result panel 185 (unknown) (no date) (unknown) [facility] (no value) [facility] Result panel 186 (unknown) (no date) (unknown) [facility] (no value) [facility] Result panel 187 (unknown) (no date) (unknown) [facility] (no value) [facility] Result panel 188 (unknown) (no date) (unknown) [facility] (no value) [facility] Result panel 189 (unknown) (no date) (unknown) [facility] (no value) [facility] Result panel 190 (unknown) (no date) (unknown) [facility] (no value) [facility] Result panel 191 (unknown) (no date) (unknown) [facility] (no value) [facility] Result panel 192 (unknown) (no date) (unknown) [facility] (no value) [facility] Result panel 193 (unknown) (no date) (unknown) [facility] (no value) [facility] Result panel 194 (unknown) (no date) (unknown) [facility] (no value) [facility] Result panel 195 (unknown) (no date) (unknown) [facility] (no value) [facility] Result panel 196 (unknown) (no date) (unknown) [facility] (no value) [facility] Result panel 197 (unknown) (no date) (unknown) [facility] (no value) [facility] Result panel 198 (unknown) (no date) (unknown) [facility] (no value) [facility] Result panel 199 (unknown) (no date) (unknown) [facility] (no value) [facility] Result panel 200 (unknown) (no date) (unknown) [facility] (no value) [facility] Result panel 201 (unknown) (no date) (unknown) [facility] (no value) [facility] Result panel 202 (unknown) (no date) (unknown) [facility] (no value) [facility] Result panel 203 (unknown) (no date) (unknown) [facility] (no value) [facility] Result panel 204 (unknown) (no date) (unknown) [facility] (no value) [facility] Result panel 205 (unknown) (no date) (unknown) [facility] (no value) [facility] Result panel 206 (unknown) (no date) (unknown) [facility] (no value) [facility] Result panel 207 (unknown) (no date) (unknown) [facility] (no value) [facility] Result panel 208 (unknown) (no date) (unknown) [facility] (no value) [facility] Result panel 209 (unknown) (no date) (unknown) [facility] (no value) [facility] Result panel 210 (unknown) (no date) (unknown) [facility] (no value) [facility] Result panel 211 (unknown) (no date) (unknown) [facility] (no value) [facility] Result panel 212 (unknown) (no date) (unknown) [facility] (no value) [facility] Result panel 213 (unknown) (no date) (unknown) [facility] (no value) [facility] Result panel 214 (unknown) (no date) (unknown) [facility] (no value) [facility] Result panel 215 (unknown) (no date) (unknown) [facility] (no value) [facility] Result panel 216 (unknown) (no date) (unknown) [facility] (no value) [facility] Result panel 217 (unknown) (no date) (unknown) [facility] (no value) [facility] Result panel 218 (unknown) (no date) (unknown) [facility] (no value) [facility] Result panel 219 (unknown) (no date) (unknown) [facility] (no value) [facility] Result panel 220 (unknown) (no date) (unknown) [facility] (no value) [facility] Result panel 221 (unknown) (no date) (unknown) [facility] (no value) [facility] Result panel 222 (unknown) (no date) (unknown) [facility] (no value) [facility] Result panel 223 (unknown) (no date) (unknown) [facility] (no value) [facility] Result panel 224 (unknown) (no date) (unknown) [facility] (no value) [facility] Result panel 225 (unknown) (no date) (unknown) [facility] (no value) [facility] Result panel 226 (unknown) (no date) (unknown) [facility] (no value) [facility] Result panel 227 (unknown) (no date) (unknown) [facility] (no value) [facility] Result panel 228 (unknown) (no date) (unknown) [facility] (no value) [facility] Result panel 229 (unknown) (no date) (unknown) [facility] (no value) [facility] Result panel 230 (unknown) (no date) (unknown) [facility] (no value) [facility] Result panel 231 (unknown) (no date) (unknown) [facility] (no value) [facility] Result panel 232 (unknown) (no date) (unknown) [facility] (no value) [facility] Result panel 233 (unknown) (no date) (unknown) [facility] (no value) [facility] Result panel 234 (unknown) (no date) (unknown) [facility] (no value) [facility] Result panel 235 (unknown) (no date) (unknown) [facility] (no value) [facility] Result panel 236 (unknown) (no date) (unknown) [facility] (no value) [facility] Result panel 237 (unknown) (no date) (unknown) [facility] (no value) [facility] Result panel 238 (unknown) (no date) (unknown) [facility] (no value) [facility] Result panel 239 (unknown) (no date) (unknown) [facility] (no value) [facility] Result panel 240 (unknown) (no date) (unknown) [facility] (no value) [facility] Result panel 241 (unknown) (no date) (unknown) [facility] (no value) [facility] Result panel 242 (unknown) (no date) (unknown) [facility] (no value) [facility] Result panel 243 (unknown) (no date) (unknown) [facility] (no value) [facility] Result panel 244 (unknown) (no date) (unknown) [facility] (no value) [facility] Result panel 245 (unknown) (no date) (unknown) [facility] (no value) [facility] Result panel 246 (unknown) (no date) (unknown) [facility] (no value) [facility] Result panel 247 (unknown) (no date) (unknown) [facility] (no value) [facility] Result panel 248 (unknown) (no date) (unknown) [facility] (no value) [facility] Result panel 249 (unknown) (no date) (unknown) [facility] (no value) [facility] Result panel 250 (unknown) (no date) (unknown) [facility] (no value) [facility] Result panel 251 (unknown) (no date) (unknown) [facility] (no value) [facility] Result panel 252 (unknown) (no date) (unknown) [facility] (no value) [facility] Result panel 253 (unknown) (no date) (unknown) [facility] (no value) [facility] Result panel 254 (unknown) (no date) (unknown) [facility] (no value) [facility] Result panel 255 (unknown) (no date) (unknown) [facility] (no value) [facility] Result panel 256 (unknown) (no date) (unknown) [facility] (no value) [facility] Result panel 257 (unknown) (no date) (unknown) [facility] (no value) [facility] Result panel 258 (unknown) (no date) (unknown) [facility] (no value) [facility] Result panel 259 (unknown) (no date) (unknown) [facility] (no value) [facility] Result panel 260 (unknown) (no date) (unknown) Walk-In (no value) (units [facility] nown) [facility] Primary unknown) [facility] Result panel 261 (unknown) (no date) (unknown) Walk-In (no value) (units ([facility] nown) Clinic Primary unknown) [facility] Result panel 262 (unknown) (no date) (unknown) Walk-In (no value) (units (unk nown) Clinic Primary unknown) [facility] Result panel 263 (unknown) (no date) (unknown) Walk-In (no value) (units (unk nown) Clinic Primary unknown) [facility] Result panel 264 (unknown) (no date) (unknown) Walk-In (no value) (units (unk nown) Clinic Primary unknown) [facility] Result panel 265 (unknown) (no date) (unknown) Walk-In (no value) (units (unk nown) Clinic Primary unknown) [facility] Result panel 266 (unknown) (no date) (unknown) Walk-In (no value) (units (unk nown) Clinic Primary unknown) [facility] Result panel 267 (unknown) (no date) (unknown) Walk-In (no value) (units (unk nown) Clinic Primary unknown) [facility] Result panel 268 (unknown) (no date) (unknown) Walk-In (no value) (units ([facility] nown) Clinic Primary unknown) [facility] Result panel 269 (unknown) (no date) (unknown) Walk-In (no value) (units ([facility] nown) Clinic Primary unknown) [facility] Result panel 270 (unknown) (no date) (unknown) Walk-In (no value) (units ([facility] nown) Clinic Primary unknown) [facility] Result panel 271 (unknown) (no date) (unknown) Walk-In (no value) (units ([facility] nown) Clinic Primary unknown) [facility] Result panel 272 (unknown) (no date) (unknown) Walk-In (no value) (units ([facility] nown) Clinic Primary unknown) [facility] Result panel 273 (unknown) (no date) (unknown) Walk-In (no value) (units ([facility] nown) Clinic Primary unknown) [facility] Result panel 274 (unknown) (no date) (unknown) Walk-In (no value) (units ([facility] nown) Clinic Primary unknown) [facility] Result panel 275 (unknown) (no date) (unknown) Walk-In (no value) (units (unk nown) Clinic Primary unknown) [facility] Result panel 276 (unknown) (no date) (unknown) Walk-In (no value) (units ([facility] nown) Clinic Primary unknown) [facility] Result panel 277 (unknown) (no date) (unknown) Walk-In (no value) (units (unk nown) Clinic Primary unknown) [facility] Result panel 278 (unknown) (no date) (unknown) Walk-In (no value) (units ([facility] nown) Clinic Primary unknown) [facility] Result panel 279 (unknown) (no date) (unknown) Walk-In (no value) (units ([facility] nown) Clinic Primary unknown) [facility] Result panel 280 (unknown) (no date) (unknown) Walk-In (no value) (units ([facility] nown) Clinic Primary unknown) [facility] Result panel 281 (unknown) (no date) (unknown) Walk-In (no value) (units ([facility] nown) Clinic Primary unknown) [facility] Result panel 282 (unknown) (no date) (unknown) Walk-In (no value) (units (unk nown) Clinic Primary unknown) [facility] Result panel 283 (unknown) (no date) (unknown) Walk-In (no value) (units ([facility] nown) Clinic Primary unknown) [facility] Result panel 284 (unknown) (no date) (unknown) Walk-In (no value) (units ([facility] nown) Clinic Primary unknown) [facility] Result panel 285 (unknown) (no date) (unknown) Walk-In (no value) (units (unk nown) Clinic Primary unknown) [facility] Social History date description facility 2022-07-29 00:00 Never smoker Walk[facility] Vital Signs date measurement value units 2022-07-29 00:00 BMI 23.26 kg/m2 2022-07-29 00:00 BP_diastolic 76 mmHg 2022-07-29 00:00 BP_systolic 162 mmHg 2022-07-29 00:00 heart_rate 62 /min 2022-07-29 00:00 height_metric 162.56 cm 2022-07-29 00:00 height_standard 64 in 2022-07-29 00:00 respiration_rate 18 /min 2022-07-29 00:00 temperature_metric 36.39 C 2022-07-29 00:00 temperature_standard 97.5 F 2022-07-29 00:00 weight_metric 61.23 kg 2022-07-29 00:00 weight_standard 135 lb
[2022-09-29 18:11] VITALS: BP 154/67
== END 2022-09-29 18:11 | disposition home or self-care (01) ==
LOC: ED 16:35
DX: R51.9 Headache, unspecified (principal); R40.4 Transient alteration of awareness; I10 Essential (primary) hypertension
CPT/HCPCS: 36415; 80053; 81001; 81003; 84484; 85025; 87086; 93005; 99283; 99284

== ENCOUNTER 2022-10-02 08:28 | Outpatient (CLI) | payer MEDICARE | END 2022-10-02 08:29 | disposition left against medical advice (07) | LOC: EMS 08:28 | DX: R51.9 Headache, unspecified (principal); I10 Essential (primary) hypertension ==

== ENCOUNTER 2022-11-25 11:02 | Outpatient (CLI) | payer MEDICARE ==
[2022-11-25 15:47] LABS: ALBUMIN 3.6 g/dL (3.2-5.5); ALBUMIN/GLOBULIN RATIO 1.3 (1.0-2.2); BILIRUBIN,TOTAL 0.7 mg/dL (0.2-1.0); CALCIUM 8.8 mg/dL (8.5-10.3); CREATININE 0.9 mg/dL (0.4-1.0); POTASSIUM 4.5 mmol/L (3.5-5.0); TOTAL PROTEIN 6.4 g/dL (6.7-8.2)
== END 2022-11-25 11:03 | disposition home or self-care (01) ==
LOC: LAB.S 11:02
PROVIDERS: ATTEND Nurse Practitioner Acute Care
DX: I10 Essential (primary) hypertension (principal)
CPT/HCPCS: 36415; 80053

== ENCOUNTER 2022-12-31 08:08 | Outpatient (CLI) | payer MEDICARE ==
[2022-12-31 15:34] LABS: CHOLESTEROL 189 mg/dL; HDL CHOLESTEROL 47 mg/dL; LDL CHOLESTEROL,CALCULATED 120 mg/dL; LDL/HDL RATIO 2.6 (<4.4); TRIGLYCERIDES 108 mg/dL (48-352); VLDL CHOLESTEROL 22 mg/dL
== END 2022-12-31 08:09 | disposition home or self-care (01) ==
LOC: LAB.S 08:08
PROVIDERS: ATTEND Nurse Practitioner
DX: E78.5 Hyperlipidemia, unspecified (principal)
CPT/HCPCS: 36415; 80061; 83721

== ENCOUNTER 2023-03-06 12:59 | Outpatient (CLI) | payer MEDICARE, OTHER ==
--- NOTE | 2023-03-06 13:56 | Sleep Patient Instructions ---
Sleep Center Visit Summary - Patient Visit Information Reason for Visit: Initial consult for evaluation of sleep disordered breathing and other sleep issues. - Patient Instructions Instructions Attached: Sleep Clinic Visit, Sleep Study Additional Instructions: You will be completing a sleep study, either an in-lab polysomnography (PSG) or home sleep study (HST). You will follow-up in the sleep care office after the sleep study is completed to hear the results and talk about therapy, if needed. You will be called by our office staff to schedule this appointment, but you may contact us with any questions. - Clinic Information Contact: [facility] [address] [place] [address] [email or web address] T: [phone]
--- NOTE | 2023-03-06 14:03 | SLEEP CARE CONSULTATION ---
Information from patient questionnaire entered by Mary Ann Roth. I have reviewed and concur with the information entered by Mary Ann Roth. This document represents the service I personally performed and the decisions made by me, Elaine Bernardo ARNP. History of Present Illness Service Date and Time: 03/06/2023 1259 Reason for Visit: New patient Chief Complaint: reports: Snoring, Other (COUGHING) Date of Onset: SNORING FOR MANY YRS 5YRS COUGHING Usual bedtime: 10PM Time it takes to fall asleep: LESS THAN 5 MIN Snores at night: Yes Observed to quit breathing while asleep: No Number of times waking at night: 1-4 Reasons for waking at night: reports: Snoring (occasionally when sleeping in chair), Bathroom, Other (COUGHING DRY MOUTH). denies: Choking, Gasping for air Toss, Turn, or Twitch while sleeping: No Recalls having dreams: Yes Usually gets out of bed at: 630-730AM Feels refreshed in the morning: Yes Morning headache: No Sleepy or fatigued during the day: Yes (very tired in the afternoon) Ever fallen asleep while driving: No Takes day naps: Yes (3 days a week for 5 mins to 1 hour on average) Dreams during day naps: No Prior sleep studies: No Additional HPI information: I had the pleasure of seeing LURDES DEL VALLE today regarding the possibility of her having a sleep disorder. Her current complaints are snoring and coughing. She was referred by doctor because she snores and her mouth is very dry at night. She thinks it is because of her cholesterol medication because she did not have the dry mouth before she was started on this medication. She has been told that she snores and has woke herself up snoring. She states she has post nasal drip and she wakes up coughing and with phlegm and without but this is not every night. She states she has a brother who is on a CPAP for sleep apnea. She sleep alone and no one has ever told her that she stopped breathing at night. - Parasomnia Symptoms Ever been unable to move upon waking from sleep: Yes (twice in life) Walks in sleep: No Talks in sleep: No Ever acted out dreams in sleep: No Ever felt weak in the knees when startled or emotional: No Bothered by creepy, crawly, restless sensations in legs: No Problems with memory or concentration: No Subjective Initial [place] Sleepiness Scale score: 11 (02/27/23) Past Medical History Past Medical History: reports: Hypertension, Arthritis, Anxiety, GERD, Other (HYPERLIPIDEMIA) Social History The patient's occupation is a RETIRED. Patient is Single and lives in . Have you smoked in the past 12 months: No Alcohol use: Yes Alcohol amount and frequency: 1 GLASS WINE 2-3 TIMES A WEEK Caffeine use: Yes Caffeine amount and frequency: 2 CUPS ONCE A DAY Family History Family history of sleep disordered breathing: Yes Family Hx Sleep Apnea: Father: Snoring, Sibling: Sleep apnea - Treated Allergies and Home Medications Known drug allergies: Yes (CONTRAST DYE DETEROL LA) Drug allergies reviewed: Yes Home medication list reviewed: Yes Allergy and home medication list: Allergies tolterodine tartrate * [From Detrol] Allergy (Verified 03/05/23 16:06) Unknown racing heart beat iv dye Allergy (Severe, Uncoded 03/05/23 16:06) Anaphylaxis Home Medications Medication Instructions Recorded Confirmed Last Taken Type FLUoxetine [PROzac] 10 mg PO DAILY 07/02/21 03/06/23 09/29/22 History Losartan [Cozaar] 50 mg PO DAILY 07/02/21 03/06/23 09/29/22 History Metoprolol Succinate [Toprol Xl] 25 mg PO DAILY 07/02/21 03/06/23 09/29/22 History Cholecalciferol (Vitamin D3) See Rx Instructions .ROUTE .COMPLEX 03/05/23 03/06/23 Unknown History [Vitamin D3] Cyanocobalamin (Vitamin B-12) See Rx Instructions .ROUTE .COMPLEX 03/05/23 03/06/23 Unknown History [Vitamin B12] Magnesium See Rx Instructions .ROUTE .COMPLEX 03/05/23 03/06/23 Unknown History Pravastatin [Pravachol] See Rx Instructions .ROUTE .COMPLEX 03/05/23 03/06/23 Unknown History Ubidecarenone [Co Q-10] See Rx Instructions .ROUTE .COMPLEX 03/05/23 03/06/23 Unknown History Review of Systems Weight gain over past 5 years: 5 Cardiovascular: reports: high blood pressure Respiratory: reports: sputum production, chronic cough Gastrointestinal: denies: heartburn Urinary: reports: urgency Neurological: reports: gait or balance problems. denies: headaches Psychiatric: reports: anxiety Ear/Nose/Throat: reports: dry mouth/throat, wisdom teeth removed. denies: tonsillectomy Endocrine: denies: thyroid disease Musculoskeletal: reports: joint pain, muscle pain or cramping Immunologic: reports: sneezing, itching Physical Exam Vital signs obtained and entered by: MARY ANN Sumner MA Blood Pressure: 124/76 (LEFT ARM) Cuff size: regular Heart Rate: 61 O2 Saturation: 97 Height: 5 ft 4 in Weight: 139 lb 6.4 oz Body Mass Index: 23.9 BMI Classification: Normal Neck circumference: 13.25 Mouth and throat: narrow oropharynx Soft palate: long Hard palate: normal Uvula: long Uvula visualization: 25% Mallampati Class III Tongue: enlarged in size with teeth jean-baptiste on lateral edges Tonsils: small Neck: normal w/o lymphadenopathy or thyromegaly Heart: regular rate and rhythm Lungs: clear bilaterally Impression and Plan 1. Suspected Obstructive Sleep Apnea-Hypopnea Syndrome, as suggested by a history of loud and irregular snoring, coughing waking her up. She has a history of hypertension. Narrow oropharynx and obesity are common predisposing factors for obstructive sleep apnea-hypopnea syndrome. I recommend proceeding to polysomnography to confirm the diagnosis and to assess severity. If the patient has significant sleep disordered breathing, a manual CPAP titration study will also be performed to find the optimal treatment pressure. I informed the patient of what the sleep studies involve and after some discussion, obtained agreement to proceed. The pathophysiology of obstructive sleep apnea-hypopnea syndrome was discussed with the patient and health risks of cardiovascular and cerebrovascular disease if not treated. Risks of drowsy driving discussed in detail and patient advised to avoid long distance driving and to lumber puller at the first sign of drowsiness. Patient agreed to plan. * Schedule polysomnography. * Avoid long distance driving or driving when feeling sleepy. * Avoid alcohol, sedative and muscle relaxant around bedtime. * Review instructions provided by trained office staff on how to prepare for the sleep study. * Return for follow-up after sleep study completed. Plan: PSG Visit Type: In Office Time Spent with Patient (minutes): 30 Provider Statement: I spent 100% of the Face to Face Visit with the patient with greater than 50% spent counseling the patient and coordination of care.
[2023-03-06 14:18] VITALS: BP 124/76; O2SAT 97
== END 2023-03-06 13:00 | disposition home or self-care (01) ==
LOC: SC 12:59
PROVIDERS: ATTEND Nurse Practitioner Family
DX: R53.83 Other fatigue (principal); R06.83 Snoring; I10 Essential (primary) hypertension; R05.9 Cough, unspecified
CPT/HCPCS: 99203; G0463; 99212

== ENCOUNTER 2023-08-03 07:17 | Outpatient (CLI) | payer MEDICARE, OTHER ==
[2023-08-03 14:49] LABS: BASOPHILS % (AUTO) 0.5 %; EOSINOPHILS # (AUTO) 0.2 10^3/uL (0.0-0.7); HCT - HEMATOCRIT 43.7 % (37.0-47.0); HGB - HEMOGLOBIN 14.4 g/dL (12.0-16.0); LYMPHOCYTES # (AUTO) 1.6 10^3/uL (1.5-3.5); LYMPHOCYTES % (AUTO) 23.6 %; MEAN CORPUSCULAR HEMOGLOBIN 29.9 pg (27.0-31.0); MEAN CORPUSCULAR VOLUME 90.9 fL (81.0-99.0); MEAN PLATELET VOLUME 10.5 fL (7.9-10.8); MONOCYTES # (AUTO) 0.6 10^3/uL (0.0-1.0); MONOCYTES % (AUTO) 9.4 %; NEUTROPHILS # (AUTO) 4.2 10^3/uL (1.5-6.6); NEUTROPHILS % (AUTO) 63.3 %; PLT - PLATELET COUNT 225 10^3/uL (130-450); RED BLOOD COUNT 4.81 10^6/uL (4.20-5.40); RED CELL DISTRIBUTION WIDTH 13.7 % (12.0-15.0); WHITE BLOOD COUNT 6.6 x10^3/uL (4.8-10.8)
[2023-08-03 15:31] LABS: ALBUMIN 3.9 g/dL (3.2-5.5); ALBUMIN/GLOBULIN RATIO 1.4 (1.0-2.2); ALKALINE PHOSPHATASE 63 IU/L (42-121); ALT ALANINE AMINOTRANSFERASE 13 IU/L (10-60); AST ASPARTATE AMINOTRANSFERASE 15 IU/L (10-42); BILIRUBIN,TOTAL 0.5 mg/dL (0.2-1.0); BUN - BLOOD UREA NITROGEN 15 mg/dL (6-20); CALCIUM 9.4 mg/dL (8.5-10.3); CARBON DIOXIDE - CO2 31 mmol/L (21-32); CHLORIDE 103 mmol/L (101-111); CHOL/HDL RATIO 4.6 (<4.4); CHOLESTEROL 185 mg/dL; CREATININE 0.9 mg/dL (0.6-1.3); GFR - MDRD 60 (>89); GLUCOSE 89 mg/dL (74-104); HDL CHOLESTEROL 40 mg/dL; LDL CHOLESTEROL,CALCULATED 110 mg/dL; LDL/HDL RATIO 2.8 (<4.4); POTASSIUM 4.4 mmol/L (3.5-4.5); SODIUM 136 mmol/L (135-145); TOTAL PROTEIN 6.6 g/dL (6.4-8.9); TRIGLYCERIDES 176 mg/dL (48-352); VLDL CHOLESTEROL 35 mg/dL
== END 2023-08-03 07:18 | disposition home or self-care (01) ==
LOC: LAB.S 07:17
PROVIDERS: ATTEND Nurse Practitioner Acute Care
DX: Z13.220 Encounter for screening for lipoid disorders (principal); Z79.899 Other long term (current) drug therapy; Z13.228 Encounter for screening for other metabolic disorders; Z13.29 Encounter for screening for other suspected endocrine disorder; Z13.0 Encounter for screening for diseases of the blood and blood-forming organs and certain disorders involving the immune mechanism
CPT/HCPCS: 36415; 80053; 80061; 83721; 84443; 85025

== ENCOUNTER 2023-08-21 16:43 | Outpatient (CLI) | payer MEDICARE, OTHER ==
--- NOTE | 2023-08-23 11:08 | Ultrasound Report ---
PROCEDURE: Carotid Doppler Complete INDICATIONS: DYSARTHRIA TECHNIQUE: Color and pulse Doppler interrogation was performed of both carotid systems, with image documentation and velocity measurements. COMPARISON: None. FINDINGS: Right side: Brachial blood pressure: 156/79 mm Hg. Common carotid artery peak systolic velocity: 70.3 cm/sec. Internal carotid artery peak systolic velocity: 68.1 cm/sec. Internal carotid artery end diastolic velocity: 19.6 cm/sec. External carotid artery peak systolic velocity: 60.6 cm/sec. ICA/CCA peak systolic ratio: 1.0 . Diaz scale imaging description: Atheromatous plaque is present throughout. Percent internal carotid artery stenosis: Less than 50 percent stenosis. Vertebral artery: Flow direction is antegrade. Left side: Brachial blood pressure: Not obtained Common carotid artery peak systolic velocity: 67.2 cm/sec. Internal carotid artery peak systolic velocity: 56.2 cm/sec. Internal carotid artery end diastolic velocity: 15.4 cm/sec. External carotid artery peak systolic velocity: 55.8 cm/sec. ICA/CCA peak systolic ratio: 0.8 . Diaz scale imaging description: No significant atherosclerotic plaque. Percent internal carotid artery stenosis: Less than 50 percent stenosis. Vertebral artery: Flow direction is antegrade. IMPRESSION: 1. Less than 50% stenosis of the bilateral internal carotid arteries. The estimate of stenosis includ ed in the report of the imaging study was calculated using the IAC-endorsed standards of carotid carrie ry stenosis. Reviewed by: Marla Ardon MD on 08/23/2023 11:07 AM PDT Approved by: Marla Ardon MD on 08/23/2023 11:07 AM PDT Station ID: [id number]
== END 2023-08-21 16:44 | disposition home or self-care (01) ==
LOC: DI 16:43
PROVIDERS: ATTEND Nurse Practitioner Acute Care
DX: R47.1 Dysarthria and anarthria (principal); I16.0 Hypertensive urgency; I65.21 Occlusion and stenosis of right carotid artery
CPT/HCPCS: 93880

== ENCOUNTER 2023-09-02 19:27 | Outpatient (CLI) | payer MEDICARE, OTHER | END 2023-09-02 19:28 | disposition home or self-care (01) | LOC: SC 19:27 | PROVIDERS: ATTEND Nurse Practitioner Family | DX: G47.33 Obstructive sleep apnea (adult) (pediatric) (principal); G47.61 Periodic limb movement disorder | CPT/HCPCS: 95810 ==

== ENCOUNTER 2023-09-16 09:25 | Outpatient (CLI) | payer MEDICARE, OTHER ==
--- NOTE | 2023-09-16 09:49 | Sleep Patient Instructions ---
Sleep Center Visit Summary - Patient Visit Information Reason for Visit: Sleep study follow-up - Patient Instructions Instructions Attached: CPAP Additional Instructions: You are being started on CPAP therapy with pressure setting at 4-15 cmH2O. You will need to call the sleep care office to set up your follow up once you have your CPAP machine to check compliance and response to therapy at that time. You may call the office with any concerns about pressure feeling too low or too much for adjustment, if needed. You should contact DME supplier for any questions or concerns about mask or equipment. Please call office to schedule a follow up appointment in the sleep care office one month after obtaining new device. - Clinic Information Contact: [facility] [address] [place] [address] [email or web address] T: [phone]
--- NOTE | 2023-09-16 09:52 | SLEEP CARE CONSULTATION ---
Information from patient questionnaire entered by Sakshi Roth. I have reviewed and concur with the information entered by Sakshi Roth. This document represents the service I personally performed and the decisions made by me, Elaine Bernardo ARNP. History of Present Illness Service Date and Time: 09/16/2023924 Initial [place] Sleepiness Scale score: 11 (01/2023) Current [place] Sleepiness Scale score: 8 (09/16/23) Additional HPI information: LURDES DEL VALLE returns for follow up and results of the recently performed polysomnography. The sleep study showed severe obstructive sleep apnea with an average AHI of 44.9 and sandra oxygen saturation of 86%. She only slept supine and had severe PLMs contributing to sleep fragmentation. I explained the pathophysiology behind obstructive sleep apnea. We then spent quite a bit of time discussing different treatment options. For mild obstructive sleep apnea, surgery and oral appliance are alternatives to nasal CPAP therapy but in moderate or severe cases, nasal CPAP is the most effective and reliable treatment. I reviewed the impact of weight changes on sleep apnea and strongly recommended losing weight. After some discussion, the patient opted to go with the nasal CPAP therapy. Nasal autoCPAP set at 4-15 cmH20 will be ordered with rationale explained. A manual titration study will be ordered if unable to find optimal pressure with office adjustments. I explained how CPAP machine works and what to expect when using the machine. Using CPAP every night in order to get used to it was emphasized. Patient advised to put CPAP mask on before getting into bed so as not to fall asleep without CPAP. To assist acclimation to CPAP use, it could also be used for a short time during day while reading or watching TV. The patient was instructed to call the CPAP supplier to discuss any mechanical problem that may occur. If the mask given is uncomfortable or is difficult to keep on through the night even with adjustment, contact the CPAP supplier as many will replace with another mask style if notified before 30 days. If snoring or perceives is not getting enough air or too much air from the machine, notify this office. Patient counseled not drink alcohol less than 4 hours before bedtime as it can increase snoring and apnea. Patient was cautioned about risks of drowsy driving until sleepiness symptoms resolve. Patient denies drowsy driving. Sleep Study - Results Type of Sleep Study: Polysomnography (COMPLETED 09/02/23) Polysomnography/Home Sleep Study results: IMPRESSION: The quality of the study is good. The patient had slightly reduced sleep efficiency due to prolonged awakening in the middle of the night and musical instrument maker or repairer awakening. The sleep architecture was abnormal for sleep fragmentation and reduced amount of time spent in REM sleep. Respiratory monitoring showed severe obstructive sleep apnea-hypopnea (AHI = 44.9) associated with frequent arousals, oxyhemoglobin desaturation and mild hypoxia (sandra oxygen saturation of 86%). The patient only slept supine during this study (supine AHI = 44.9; nonsupine = 0.00). Snore was light to loud in intensity. There was severe periodic leg movement of sleep contributing to the sleep fragmentation. Cardiac rhythm was normal sinus rhythm without significant arrhythmia. No abnormal behavior (parasomnia) observed during the night. Allergies and Home Medications Known drug allergies: Yes (as listed) Drug allergies reviewed: Yes Home medication list reviewed: Yes (no changes) Allergy and home medication list: Allergies tolterodine tartrate * [From Detrol] Allergy (Verified 09/14/23 09:16) Unknown racing heart beat iv dye Allergy (Severe, Uncoded 09/14/23 09:16) Anaphylaxis Review of Systems Review of systems same as previous: Yes (NO CHANGE) Physical Exam Vital signs obtained and entered by: SAKSHI Sumner MA Blood Pressure: 181/97 (LEFT ARM) Cuff size: regular Heart Rate: 58 O2 Saturation: 99 Height: 5 ft 4 in Weight: 138 lb 9.6 oz Body Mass Index: 23.8 BMI Classification: Normal Impression and Plan 1. Obstructive Sleep Apnea-Hypopnea Syndrome, severe, with lowest oxygen saturation of 86%. Obviously this is the cause of the patients symptoms of unrefreshed sleep, and excessive daytime sleepiness. Positive pressure therapy could benefit hypertension, anxiety and gastric reflux. As mentioned above, the patient will be started on nasal autoCPAP therapy with pressure set at 4-15 cmH2 O. A manual titration study will be completed if unable to find optimal treatment pressure with office adjustments. Compliance guidelines also reviewed. 2. Hypoxemia, mild, with a sandra oxygen saturation of 86% and 1.7 minutes spent under 90%. The baseline oxygen saturation was normal with an average oxygen saturation of 93%. 3. Periodic limb movement, severe, that did contribute to fragmentation of the patients sleep. Periodic limb movement of sleep (PLMS) is characterized by episodes of repetitive limb movements that occur during sleep and usually involve the lower limbs. The etiology is unknown. Sleep hygiene methods can also improve sleep as well as lifestyle changes such as regular exercise. Patient was advised that no treatment is needed at this time. If symptoms increase, then further evaluation is indicated. * Nasal auto CPAP therapy, pressure at 4-15 cm H2O. * Maintain healthy weight. * Avoid alcohol consumption near bedtime. * Avoid supine sleep until using CPAP. * The patient is again cautioned about driving until sleepiness completely resolves. * Return one month after CPAP obtained. I will assess response to therapy and compliance at that time. Counseling Topics: Weight control Prescriptions: Auto CPAP Follow up with Sleep Care in: other (for compliance visit) Visit Type: In Office Time Spent with Patient (minutes): 22 Provider Statement: I spent 100% of the Face to Face Visit with the patient with greater than 50% spent counseling the patient and coordination of care.
[2023-09-16 09:56] VITALS: BP 181/97; O2SAT 99
== END 2023-09-16 09:26 | disposition home or self-care (01) ==
LOC: SC 09:25
PROVIDERS: ATTEND Nurse Practitioner Family
DX: G47.33 Obstructive sleep apnea (adult) (pediatric) (principal); R09.02 Hypoxemia; G47.61 Periodic limb movement disorder
CPT/HCPCS: 99213; G0463; 99212